=== PATIENT | female | born 1945 | race Two or more races ===

== ENCOUNTER → 2024-08-05 | Outpatient (CLI) | payer OTHER, MEDICAID, SELFPAY ==
[2024-08-05 10:17] LABS: Basophils # (Auto) 0.1 Thou/mm3 (0.0-0.2); Basophils % (Auto) 1 % (0-2.5); Eosinophils # (Auto) 0.1 Thou/mm3 (0.0-0.5); Eosinophils % (Auto) 2 % (0-10); Hematocrit 34.2 % (36.0-46.0); Hemoglobin 10.9 g/dL (12.0-16.0); Immature Granulocytes % (Auto) 0 % (0-0); Immature Granulocytes Auto 0.03 Thou/mm3 (0.00-0.00); Lymphocytes # (Auto) 3.3 Thou/mm3 (1.0-4.8); Lymphocytes % (Auto) 40 % (10-50); Mean Corpuscular HGB Conc 31.9 g/dl (31.0-37.0); Mean Corpuscular Hemoglobin 28.7 pg (25.0-35.0); Mean Corpuscular Volume 90 fL (80-100); Monocytes # (Auto) 0.5 Thou/mm3 (0.0-0.8); Monocytes % (Auto) 6 % (0-12); Neutrophils # (Auto) 4.2 Thou/mm3 (1.8-7.7); Neutrophils % (Auto) 51 % (37-80); Nucleated Red Blood Cell % 0 /100 WBC (0); Platelet Count 280 Thou/mm3 (140-440); RDW Standard Deviation 47.1 fL (36.4-46.3); White Blood Count 8.3 Thou/mm3 (3.6-11.0)
[2024-08-05 10:29] LABS: Glucose Estimated Average 154 mg/dL (80-131)
[2024-08-05 11:09] LABS: Alanine Aminotransferase 14 U/L (10-49); Albumin, Serum 4.4 gm/dL (3.4-4.8); Albumin/Globulin Ratio 2.3 (1.2-2.2); Alkaline Phosphatase 86 U/L (46-116); Anion Gap 7 (7-16); Aspartate Amino Transferase < 10 U/L (0-34); BUN/Creatinine Ratio 29 Ratio (12-20); Bilirubin,Total 0.5 mg/dL (0.3-1.2); Blood Urea Nitrogen 58 mg/dL (9-23); Calcium 8.9 mg/dL (8.3-10.6); Calcium (Corrected) 8.9 mg/dL (8.5-10.1); Carbon Dioxide 29.6 mMol/L (20.0-31.0); Cardiac Risk Estimate 3.1 RATIO (3.7-5.6); Chloride 103 mMol/L (98-107); Cholesterol 139 mg/dL (132-200); Globulin 1.9 gm/dL (2.3-3.5); Glucose 118 mg/dL (74-106); HDL Cholesterol 45 mg/dL (40-60); LDL Cholesterol,Calculated 68 mg/dL (0-130); Osmolality,Calculated 296 (275-295); Sodium 140 mMol/L (136-145); Total Protein 6.3 gm/dL (5.7-8.2); Triglycerides 130 mg/dL (30-150); eGFR 25 See Note
== END | disposition home or self-care (01) ==
PROVIDERS: PCP Nurse Practitioner Family; Referring Provider Nurse Practitioner Family; Visit Provider Nurse Practitioner Family
DX: E11.65 Type 2 diabetes mellitus with hyperglycemia (principal)
CPT/HCPCS: 36415; 80053; 80061; 83036; 85025

== ENCOUNTER → 2024-09-23 | Outpatient (CLI) | payer MEDICARE, MEDICAID, SELFPAY ==
[2024-09-23 10:37] LABS: Basophils # (Auto) 0.1 Thou/mm3 (0.0-0.2); Basophils % (Auto) 1 % (0-2.5); Eosinophils # (Auto) 0.2 Thou/mm3 (0.0-0.5); Eosinophils % (Auto) 2 % (0-10); Hematocrit 34.2 % (36.0-46.0); Hemoglobin 10.3 g/dL (12.0-16.0); Immature Granulocytes % (Auto) 0 % (0-0); Immature Granulocytes Auto 0.02 Thou/mm3 (0.00-0.00); Lymphocytes # (Auto) 2.3 Thou/mm3 (1.0-4.8); Lymphocytes % (Auto) 33 % (10-50); Mean Corpuscular HGB Conc 30.1 g/dl (31.0-37.0); Mean Corpuscular Hemoglobin 28.5 pg (25.0-35.0); Mean Corpuscular Volume 95 fL (80-100); Monocytes # (Auto) 0.4 Thou/mm3 (0.0-0.8); Monocytes % (Auto) 6 % (0-12); Neutrophils % (Auto) 58 % (37-80); Nucleated Red Blood Cell % 0 /100 WBC (0); Platelet Count 269 Thou/mm3 (140-440); Red Blood Count 3.61 Miln/mm3 (4.00-5.20); White Blood Count 6.9 Thou/mm3 (3.6-11.0)
[2024-09-23 10:48] LABS: Glucose Estimated Average 157 mg/dL (80-131); Hemoglobin A1C 7.1 % Hgb (4.8-6.0)
[2024-09-23 11:06] LABS: Alanine Aminotransferase 9 U/L (10-49); Albumin, Serum 4.2 gm/dL (3.4-4.8); Albumin/Globulin Ratio 1.6 (1.2-2.2); Alkaline Phosphatase 84 U/L (46-116); Anion Gap 10 (7-16); Aspartate Amino Transferase < 8 U/L (0-34); BUN/Creatinine Ratio 29 Ratio (12-20); Bilirubin,Total 0.6 mg/dL (0.3-1.2); Blood Urea Nitrogen 67 mg/dL (9-23); Calcium 8.8 mg/dL (8.3-10.6); Calcium (Corrected) 8.8 mg/dL (8.5-10.1); Carbon Dioxide 31.1 mMol/L (20.0-31.0); Cardiac Risk Estimate 3.1 RATIO (3.7-5.6); Chloride 104 mMol/L (98-107); Cholesterol 151 mg/dL (132-200); Creatinine (Component) 2.3 mg/dL (0.6-1.3); Globulin 2.6 gm/dL (2.3-3.5); Glucose 85 mg/dL (74-106); HDL Cholesterol 48 mg/dL (40-60); LDL Cholesterol,Calculated 83 mg/dL (0-130); Osmolality,Calculated 307 (275-295); Potassium 4.2 mMol/L (3.4-5.1); Sodium 145 mMol/L (136-145); Total Protein 6.8 gm/dL (5.7-8.2); Triglycerides 101 mg/dL (30-150); eGFR 21 See Note
[2024-09-23 11:11] LABS: Vitamin D 25 Hydroxy Total 38.6 ng/mL (7.3-40.2)
== END | disposition home or self-care (01) ==
PROVIDERS: PCP Internal Medicine; Referring Provider Internal Medicine; Visit Provider Internal Medicine
DX: I12.9 Hypertensive chronic kidney disease with stage 1 through stage 4 chronic kidney disease, or unspecified chronic kidney disease (principal); E11.22 Type 2 diabetes mellitus with diabetic chronic kidney disease; N18.4 Chronic kidney disease, stage 4 (severe); E78.5 Hyperlipidemia, unspecified
CPT/HCPCS: 36415; 80053; 80061; 81001; 82043; 82306; 82570; 83036; 83970; 84443; 85025

== ENCOUNTER → 2024-09-24 | Outpatient (CLI) | payer MEDICARE, MEDICAID, SELFPAY ==
[2024-09-24 14:17] LABS: Collection Type, Urine Clean Catch
[2024-09-24 16:09] LABS: Bilirubin,Urine Negative (Negative); Blood,Urine Negative (Negative); Clarity,Urine Clear (Clear/Hazy); Color,Urine Lt-Yellow (Lt Yel-Yel); Glucose, Urine 3+ (Negative); Ketones,Urine Negative (Negative); Leukocyte Esterase,Urine Positive (Negative); Nitrite,Urine Negative (Negative); PH,Urine 6.5 (5.0-7.0); Protein,Urine Negative (Neg - Trace); RBC,Urine 2 /hpf (0-3); Specific Gravity,Urine 1.014 (1.001-1.035); Squamous Epithelial Cell,Urine 1 /hpf (0-5); Urobilinogen,Urine Negative mg/dL (0.0-1.0); WBC,Urine 38 /hpf (0-5)
[2024-09-24 16:32] LABS: Creatinine MALB Rnd Ur 61 mg/dL (30-125); Microalbumin, Random Urine < 3 mg/L (0-300)
== END | disposition home or self-care (01) ==
PROVIDERS: PCP Internal Medicine; Referring Provider Internal Medicine; Visit Provider Internal Medicine
DX: I12.9 Hypertensive chronic kidney disease with stage 1 through stage 4 chronic kidney disease, or unspecified chronic kidney disease (principal); E11.22 Type 2 diabetes mellitus with diabetic chronic kidney disease; N18.4 Chronic kidney disease, stage 4 (severe); E78.5 Hyperlipidemia, unspecified
CPT/HCPCS: 81001; 82043; 82570

== ENCOUNTER → 2024-10-04 | Outpatient (CLI) | payer MEDICARE, MEDICAID, SELFPAY ==
--- NOTE | 2024-10-04 13:33 | XR_ITS ---
EXAMINATION: Ankle, left 3 views . Technique: Ankle AP, oblique, lateral 3 views Date and time of exam: October 04, 2024 1418 hours INDICATIONS: Patient fell last week with injury to the ankle, ankle pain. FINDINGS: Severe osteopenia No acute fracture No ankle dislocation IMPRESSION: No acute fracture
== END | disposition home or self-care (01) ==
LOC: CDIM 13:05
PROVIDERS: PCP Internal Medicine; Referring Provider Psychiatry & Neurology Neurology; Visit Provider Psychiatry & Neurology Neurology
DX: S99.912A Unspecified injury of left ankle, initial encounter (principal); W19.XXXA Unspecified fall, initial encounter
CPT/HCPCS: 73610

== ENCOUNTER → 2024-10-13 | Outpatient (CLI) | payer MEDICARE, MEDICAID, SELFPAY ==
--- NOTE | 2024-10-13 08:00 | XR_ITS ---
Examination: CT brain head without contrast. 2-D sagittal coronal reconstructions Date and time of exam:October 13, 2024 0841 hours INDICATIONS: Patient fell October 01, 2024 with injury to the head, head pain CTDI: vol (mGy):49.2 DLP: (mGycm):927 Technique: Multiple CT axial sections of the brain have been obtained, 5 mm slice thickness. Contrast has not been administered. 2-D sagittal, coronal reconstructions have been obtained Low dose protocols were performed. One or more of the following dose reduction techniques were used; automated exposure control, adjustment of the mA and/or KV according to patient size, use of iterative reconstruction technique. Findings: No significant ventricular enlargement. 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 No mass effect or midline shift Basal cisterns are not remarkable. Fourth ventricle is midline. Cranial vault intact. Impression: Negative for acute hemorrhage, mass effect or midline shift Clinical correlation advised and follow-up accordingly
== END | disposition home or self-care (01) ==
LOC: CCTX 08:22
PROVIDERS: Referring Provider Psychiatry & Neurology Neurology; Visit Provider Psychiatry & Neurology Neurology
DX: S09.90XA Unspecified injury of head, initial encounter (principal); W19.XXXA Unspecified fall, initial encounter
CPT/HCPCS: 70450

== ENCOUNTER → 2024-11-10 | Outpatient (CLI) | payer MEDICARE, MEDICAID, SELFPAY ==
[2024-11-10 09:53] LABS: Basophils % (Auto) 1 % (0-2.5); Eosinophils # (Auto) 0.2 Thou/mm3 (0.0-0.5); Eosinophils % (Auto) 3 % (0-10); Hematocrit 31.3 % (36.0-46.0); Hemoglobin 9.5 g/dL (12.0-16.0); Immature Granulocytes % (Auto) 0 % (0-0); Immature Granulocytes Auto 0.02 Thou/mm3 (0.00-0.00); Lymphocytes # (Auto) 2.6 Thou/mm3 (1.0-4.8); Lymphocytes % (Auto) 35 % (10-50); Mean Corpuscular HGB Conc 30.4 g/dl (31.0-37.0); Mean Corpuscular Hemoglobin 28.8 pg (25.0-35.0); Mean Corpuscular Volume 95 fL (80-100); Monocytes # (Auto) 0.5 Thou/mm3 (0.0-0.8); Monocytes % (Auto) 7 % (0-12); Neutrophils % (Auto) 54 % (37-80); Nucleated Red Blood Cell % 0 /100 WBC (0); Platelet Count 267 Thou/mm3 (140-440); RDW Standard Deviation 53.4 fL (36.4-46.3); White Blood Count 7.4 Thou/mm3 (3.6-11.0)
[2024-11-10 10:02] LABS: Glucose Estimated Average 148 mg/dL (80-131); Hemoglobin A1C 6.8 % Hgb (4.8-6.0)
[2024-11-10 10:24] LABS: Alanine Aminotransferase 14 U/L (10-49); Albumin, Serum 4.1 gm/dL (3.4-4.8); Albumin/Globulin Ratio 2.1 (1.2-2.2); Alkaline Phosphatase 91 U/L (46-116); Anion Gap 9 (7-16); Aspartate Amino Transferase 10 U/L (0-34); BUN/Creatinine Ratio 27 Ratio (12-20); Bilirubin,Total 0.8 mg/dL (0.3-1.2); Blood Urea Nitrogen 59 mg/dL (9-23); Calcium 8.3 mg/dL (8.3-10.6); Calcium (Corrected) 8.3 mg/dL (8.5-10.1); Carbon Dioxide 31.1 mMol/L (20.0-31.0); Cardiac Risk Estimate 2.9 RATIO (3.7-5.6); Chloride 106 mMol/L (98-107); Cholesterol 142 mg/dL (132-200); Creatinine (Component) 2.2 mg/dL (0.6-1.3); Glucose 86 mg/dL (74-106); HDL Cholesterol 49 mg/dL (40-60); LDL Cholesterol,Calculated 75 mg/dL (0-130); Osmolality,Calculated 306 (275-295); Potassium 4.7 mMol/L (3.4-5.1); Sodium 146 mMol/L (136-145); Total Protein 6.1 gm/dL (5.7-8.2); Triglycerides 90 mg/dL (30-150); eGFR 22 See Note
== END | disposition home or self-care (01) ==
LOC: COPL 08:51
PROVIDERS: PCP Internal Medicine; Referring Provider Nurse Practitioner Family; Visit Provider Nurse Practitioner Family
DX: E11.65 Type 2 diabetes mellitus with hyperglycemia (principal)
CPT/HCPCS: 36415; 80053; 80061; 83036; 85025

== ENCOUNTER → 2024-12-07 | Outpatient (CLI) | payer MEDICARE, MEDICAID, SELFPAY ==
--- NOTE | 2024-12-07 15:12 | XR_ITS ---
Examination: Fingers, left hand 3 views Technique: AP, oblique, lateral views left hand 3 views. Exam date and time: December 07, 2024 at 1526 hours INDICATIONS: Left third digit pain and swelling 3 days FINDINGS: Severe osteopenia Soft tissue swelling about the third digit No nori cortical bone destruction No fracture Soft tissue vascular calcification IMPRESSION: No nori cortical bone destruction
== END | disposition home or self-care (01) ==
PROVIDERS: PCP Internal Medicine; Referring Provider Internal Medicine; Visit Provider Internal Medicine
DX: M79.645 Pain in left finger(s) (principal)
CPT/HCPCS: 73140

== ENCOUNTER 2024-12-20 19:14 | Inpatient (IN) | payer OTHER, MEDICAID, MEDICARE, SELFPAY ==
[2024-12-20 19:43] VITALS: BP 174/89; PULSE 90; RESP 20; TEMP 37; O2SAT 95
--- NOTE | 2024-12-20 19:53 | PD.EDHAND ---
Upper Extremity Injury RME/HPI General Chief Complaint: Hand/Wrist Problems Stated Complaint: LEFT HAND FINGER SWELLING Time Seen by Provider: 12/20/24 19:53 Source: patient and family Arrival date/time: 12/20/24 19:14 Mode of arrival: wheelchair Limitations: no limitations RME / HPI complaint: injury to: left and finger (Middle) Onset (ago): week(s) (2 weeks) Other Extremity Injury: Left: fingers (Middle) Other injuries: none Relieving factors: none Exacerbating factors: movement of extremity Related Data Home Medications ?Medication ?Instructions ?Recorded ?Confirmed glipizide 10 mg tablet 10 mg PO BID 11/30/21 12/24/21 hydralazine 50 mg tablet 50 mg PO TID 11/30/21 12/24/21 atorvastatin 20 mg tablet 20 mg PO HS 12/24/21 12/24/21 benazepril 10 1 tab PO QDAY 12/24/21 12/24/21 mg-hydrochlorothiazide 12.5 mg tablet bumetanide 1 mg tablet 1 mg PO QDAY 12/24/21 12/24/21 insulin degludec 200 unit/mL (3 38 unit subcut QAM 12/24/21 12/24/21 mL) subcutaneous pen (Tresiba FlexTouch U-200 insulin) Previous Rx's ?Medication ?Instructions ?Recorded diltiazem HCl 60 mg tablet 60 mg PO TID #0 tabs 12/01/21 meloxicam 7.5 mg tablet 7.5 mg PO QDAY #10 tabs 08/10/23 diclofenac sodium 1 % topical gel 2 g topical QID PRN pain #100 grams 02/29/24 (Arthritis Pain (diclofenac)) lidocaine 4 % topical patch 1 patch topical Q24H PRN pain #30 02/29/24 (AsperFlex (lidocaine)) ea Allergies Allergy/AdvReac Type Severity Reaction Status Date / Time No Known Allergies Allergy Verified 12/20/24 19:15 Review of Systems Review of Systems Systems Reviewed: All systems reviewed, normal except as documented Musculoskeletal Musculoskeletal: Reports system reviewed and no additional complaints, except as documented, Reports as per HPI, Reports arthralgias, Reports joint swelling (Left digit number 1) and Reports limited range of motion Integumentary/Breasts Skin/Breast: Reports system reviewed and no additional complaints, except as documented and Reports erythema Neurologic Neurologic: Reports system reviewed and no additional complaints, except as documented ED Exam General Limitations: Present no limitations Head Head exam: Present atraumatic and normocephalic Eye Eye exam: Present normal appearance and EOMI ENT ENT exam: Present normal exam, normal oropharynx and mucous membranes moist Neck Neck exam: Present normal inspection and full ROM Chest Chest inspection: Present normal inspection Respiratory Respiratory exam: Present normal lung sounds bilaterally Cardiovascular Cardiovascular exam: Present regular rate and normal rhythm Abdominal Exam Abdominal exam: Present soft Extremities Exam Extremities exam: Present tenderness (Left digit number 1 is tender to palpation, it is edematous, patient is not able to make a closed fist. There is no apparent open lesions present. There is no clubbing dorsiflexion.) Back Exam Back exam: Present normal inspection and full ROM Neurological Exam Neurological exam: Present alert and oriented X3 Psychiatric Psychiatric exam: Present normal affect and normal mood Skin Skin exam: Present warm, dry, intact and erythema (Mildly erythematous is the left middle finger of the left hand) Course Course Course Narrative: Patient will have an x-ray of the left hand, CBC, CMP. Quality Measures none Orders Category Date Time Status COVID-19 Screening Questionnaire NOW Care 12/20/24 22:48 Active Decision to Admit X1 Care 12/20/24 22:48 Active XR hand comp LT min 3V Stat Exams 12/20/24 20:03 Completed Blood Culture (Lab) Stat Lab 12/20/24 22:34 Ordered CBC Stat Lab 12/20/24 20:17 Results CMP [Comprehensive Metabolic Panel] Stat Lab 12/20/24 20:17 Completed CRP [C-Reactive Protein] Stat Lab 12/20/24 22:35 Ordered Procalcitonin Stat Lab 12/20/24 22:35 Ordered Sed Rate (ESR) Stat Lab 12/20/24 20:17 Results Vital Signs Vital signs: Vital Signs Temperature 98.6 F 12/20/24 19:43 Pulse Rate 90 12/20/24 19:43 Respiratory Rate 20 12/20/24 19:43 Blood Pressure 174/89 H 12/20/24 19:43 Pulse Oximetry (%) 95 12/20/24 19:43 Oxygen Delivery Method Room Air 12/20/24 19:43 Pulse ox room air is 95% Extremity Injury MDM Narrative MDM Narrative:: Patient will be admitted to Dr. South' service. Patient data External records reviewed:: Other (specify) Clinical information provided by:: family Social determinants that could affect healthcare access:: none Patient has the following chronic illnesses:: Proteinuria, lipidemia, hypertension, diabetes, transient cerebral ischemia, carotid artery stenosis, cerebral artery PEs, toe gangrene, gangrene of foot, infestations by maggots, osteomyelitis, hyperglycemia, abnormal CT of the brain, cellulitis of right lower extremity without fluid, cholelithiasis, confusion, diabetes mellitus due to underlying condition, dizziness, hand laceration, left thumb sprain, otitis media, peripheral neuropathy, Evaluation data The following diagnostics were reviewed and interpreted by me:: radiology exam(s) Lab and/or radiology exams considered but not ordered:: Lab results have been reviewed by me as well as X-Ray results. Interpretation Summary: Early osteomyelitis distal aspect proximal phalanx third digit. Medications / Prescriptions Medications or Prescriptions considered but not ordered:: TBD Medication administrations:: TBD Consultations Consultation(s) initiated? (list below): Yes Consultation #1 (Physician, Specialty, Details): I spoke with Dr. Dr. Newman with regards to patient Matthew. He will admit and treat. Discharge Plan Plan Patient Disposition: Admit Acute Care w/in Hospital Patient condition on transfer: Stable Prescriptions/Referrals Prescriptions/Med Rec: No Action bumetanide 1 mg Tablet 1 mg PO QDAY benazepril-hydrochlorothiazide 10-12.5 mg Tablet 1 tab PO QDAY Tresiba FlexTouch U-200 200 unit/mL (3 mL) Insulin Pen 38 unit SUBCUT QAM atorvastatin 20 mg tablet 20 mg PO HS glipizide 10 mg Tablet 10 mg PO BID hydralazine 50 mg Tablet 50 mg PO TID diltiazem HCl 60 mg Tablet 60 mg PO TID Qty: 0 0RF meloxicam 7.5 mg tablet 7.5 mg PO QDAY Qty: 10 0RF diclofenac sodium [Arthritis Pain (diclofenac)] 1 % gel 2 g topical QID PRN (Reason: pain) Qty: 100 0RF Rx Instructions: apply to single elbow, wrist or hand; for hand includes palm/fingers/back of hand lidocaine [AsperFlex (lidocaine)] 4 % adhesive patch,medicated 1 patch topical Q24H PRN (Reason: pain) Qty: 30 0RF Rx Instructions: may leave on for up to 12 hrs Referrals: No Primary/Family,Physician [Primary Care Provider] - In 1 week Problem List Clinical Impression: Osteomyelitis Patient/Caregiver Discharge Instructions Print Language: Indian PA/NETWORK PROGRAM MANAGER Supervising Physician PA/NETWORK PROGRAM MANAGER Supervising Physician: KHUSHBU
--- NOTE | 2024-12-20 20:03 | XR_ITS ---
Examination: Hand, left 3 views Technique: Hand AP, oblique, lateral 3 views Date and time of exam: December 20, 20242025 hours INDICATIONS: Hand swelling and pain radiating to weeks ago IMPRESSION: Prominent soft tissue swelling dorsum of the hand and surrounding the third digit Severe osteopenia Soft tissue vascular calcification No acute fracture Early cortical erosions distal aspect proximal phalanx third digit IMPRESSION: Early osteomyelitis distal aspect proximal phalanx third digit Recommend MRI hand without contrast follow-up
[2024-12-20 20:38] LABS: Basophils # (Auto) 0.1 Thou/mm3 (0.0-0.2); Basophils % (Auto) 1 % (0-2.5); Eosinophils # (Auto) 0.2 Thou/mm3 (0.0-0.5); Eosinophils % (Auto) 2 % (0-10); Hematocrit 31.1 % (36.0-46.0); Hemoglobin 9.8 g/dL (12.0-16.0); Immature Granulocytes % (Auto) 0 % (0-0); Immature Granulocytes Auto 0.02 Thou/mm3 (0.00-0.00); Lymphocytes % (Auto) 28 % (10-50); Mean Corpuscular HGB Conc 31.5 g/dl (31.0-37.0); Mean Corpuscular Hemoglobin 29.7 pg (25.0-35.0); Mean Corpuscular Volume 94 fL (80-100); Monocytes # (Auto) 0.4 Thou/mm3 (0.0-0.8); Monocytes % (Auto) 6 % (0-12); Neutrophils # (Auto) 4.6 Thou/mm3 (1.8-7.7); Neutrophils % (Auto) 63 % (37-80); Nucleated Red Blood Cell % 0 /100 WBC (0); Platelet Count 264 Thou/mm3 (140-440); RDW Standard Deviation 50.2 fL (36.4-46.3); White Blood Count 7.3 Thou/mm3 (3.6-11.0)
[2024-12-20 20:52] LABS: Alanine Aminotransferase 8 U/L (10-49); Albumin, Serum 4.4 gm/dL (3.4-4.8); Albumin/Globulin Ratio 1.8 (1.2-2.2); Alkaline Phosphatase 91 U/L (46-116); Anion Gap 8 (7-16); Aspartate Amino Transferase 11 U/L (0-34); BUN/Creatinine Ratio 27 Ratio (12-20); Bilirubin,Total 0.5 mg/dL (0.3-1.2); Blood Urea Nitrogen 74 mg/dL (9-23); Calcium 8.2 mg/dL (8.3-10.6); Calcium (Corrected) 8.2 mg/dL (8.5-10.1); Carbon Dioxide 29.7 mMol/L (20.0-31.0); Chloride 100 mMol/L (98-107); Creatinine (Component) 2.7 mg/dL (0.6-1.3); Globulin 2.4 gm/dL (2.3-3.5); Glucose 211 mg/dL (74-106); Osmolality,Calculated 303 (275-295); Potassium 4.5 mMol/L (3.4-5.1); Sodium 138 mMol/L (136-145); Total Protein 6.8 gm/dL (5.7-8.2); eGFR 17 See Note
[2024-12-20 22:54] LABS: Sed Rate (ESR) 34 mm/hr (0-30)
[2024-12-20 23:13] LABS: C-Reactive Protein < 0.5 mg/dL (0.0-0.9)
[2024-12-20 23:16] LABS: Procalcitonin 0.09 ng/ml (0.0-0.49)
--- NOTE | 2024-12-20 23:26 | PD.RESHP ---
Documentation for date of: 12/20/24 [facility] History of Present Illness History of present illness: The patient is an 79-year-old female with significant past medical history of hypertension, diabetes mellitus type 2, peripheral vascular disease, hyperlipidemia, carotid ASO, neuropathy, chronic bilateral lower limb edema, history of right foot complete toe amputations, presented to ED with chief complaint of left hand and middle finger swelling associated with severe pain for past 4 to 5 days. She reported that she has been having frequent falls, but not losing any consciousness or hitting her head on ground. However, the swelling was before her last fall that was 3 days ago. The patient is a poor historian, and history was obtained by interviewing the patient, and chart review. She denied any injury to the left hand, insect bite, headache, nausea or vomiting, chest pain, SOB, any changes in bowel or bladder habit, fever or chills. In the ED her vitals were BP 174/89 with other vitals WNL. Labs Hb 9.8, ESR 34, BUN 74, Cr 2.7, GFR 17, BS 211, Corrected Ca 8.2, and X ray Lt hand revealed Prominent soft tissue swelling dorsum of the hand and surrounding the third digit, severe osteopenia, soft tissue vascular calcification, no acute fracture but early cortical erosions distal aspect proximal phalanx third digit. PMH: As mentioned above SHx: As mentioned above Social Hx: Denies alcohol, smoking or any illicit drug use Meds: To be reconcilled Allergy: NKA The patient was given IV ceftriaxone and vancomycin and admitted to med tele unit for further management of possible lt third digit osteomyelitis. Review of Systems Review of Systems Systems Reviewed: All systems reviewed, normal except as documented Exam Vital Signs Temp Pulse Resp BP Pulse Ox O2 Del Method 98.6 F 90 20 174/89 H 95 Room Air 12/20/24 19:43 12/20/24 19:43 12/20/24 19:43 12/20/24 19:43 12/20/24 19:43 12/20/24 19:43 Narrative Exam General: Elderly female, no acute distress, Alert and Oriented x 3 HEENT: Moist mucous membranes, oropharynx clear Neck: Supple, No masses, No JVD CVS: S1S2 Regular rate and rhythm, No murmurs, rubs or gallops Lungs: Clear to auscultation with no accessory use, no wheeze no rhonchi Abd: Soft, NT/ND, +BS, no organomegaly Ext: 1-2+ BL LL edema, Rt foot with amputated toes, feeble pulses Skin: No rash Psych: Appropriate mood and affect Results: Labs 12/20/24 20:17 12/20/24 20:17 Labs: Short CBC 12/20/24 Range/Units 20:17 WBC 7.3 (3.6-11.0) Thou/mm3 Hgb 9.8 L (12.0-16.0) g/dL Hct 31.1 L (36.0-46.0) % Plt Count 264 (140-440) Thou/mm3 BMP 12/20/24 20:17 Sodium 138 Potassium 4.5 Chloride 100 Carbon Dioxide 29.7 BUN 74 H Creatinine 2.7 H Glucose 211 H Calcium 8.2 L Liver Function 12/20/24 Range/Units 20:17 Total Bilirubin 0.5 (0.3-1.2) mg/dL AST 11 (0-34) U/L ALT 8 L (10-49) U/L Alkaline Phosphatase 91 (46-116) U/L Albumin 4.4 (3.4-4.8) gm/dL Quality Measures Quality Measures none Advance care planning discussed with:: patient Medications Home Medications and Allergies Home Medications ?Medication ?Instructions ?Recorded ?Confirmed ?Type glipizide 10 mg tablet 10 mg PO BID 11/30/21 12/24/21 History hydralazine 50 mg tablet 50 mg PO TID 11/30/21 12/24/21 History atorvastatin 20 mg tablet 20 mg PO HS 12/24/21 12/24/21 History benazepril 10 1 tab PO QDAY 12/24/21 12/24/21 History mg-hydrochlorothiazide 12.5 mg tablet bumetanide 1 mg tablet 1 mg PO QDAY 12/24/21 12/24/21 History insulin degludec 200 unit/mL (3 38 unit subcut QAM 12/24/21 12/24/21 History mL) subcutaneous pen (Tresiba FlexTouch U-200 insulin) Allergies Allergy/AdvReac Type Severity Reaction Status Date / Time No Known Allergies Allergy Verified 12/20/24 19:15 Visit Medications Ceftriaxone Sodium 2 gm/ (Sodium Chloride) 50 mls @ 100 mls/hr IV HS [facility] Stop: 12/27/24 22:54 Ceftriaxone Sodium 2 gm/ (Sodium Chloride) 50 mls @ 100 mls/hr IV X1 ONE Stop: 12/20/24 23:29 Vancomycin/Sodium Chloride (Vancomycin/Ns 1 Gm Ivpb) 200 mls @ 120 mls/hr IV Q100M ONE Stop: 12/21/24 00:39 Pharmacy Consult (Vancomycin Pharmacy To Dose 1 Each Each) 1 each IV QDAY JANAE Stop: 01/19/25 22:54 Assessment & Plan Plan The patient is an 79-year-old female with significant past medical history of hypertension, diabetes mellitus type 2, peripheral vascular disease, hyperlipidemia, carotid ASO, neuropathy, chronic bilateral lower limb edema, history of right foot complete toe amputations, presented to ED with chief complaint of left hand and middle finger swelling associated with severe pain for past 4 to 5 days. X ray Lt hand revealed Prominent soft tissue swelling dorsum of the hand and surrounding the third digit, severe osteopenia, soft tissue vascular calcification, no acute fracture but early cortical erosions distal aspect proximal phalanx third digit. The patient was given IV ceftriaxone and vancomycin and admitted to med tele unit for further management of possible lt third digit osteomyelitis. #Lt wrist and 3rd fingure swelling 2/2 #Possible lt 3rd digit osteomyelitis Presented to ED with chief complaint of left hand and middle finger swelling associated with severe pain for past 4 to 5 days. She reported that she has been having frequent falls, but not losing any consciousness or hitting her head on ground. Has significant history of uncontrolled DM2. ESR 34 X ray Lt hand revealed Prominent soft tissue swelling dorsum of the hand and surrounding the third digit, severe osteopenia, soft tissue vascular calcification, no acute fracture but early cortical erosions distal aspect proximal phalanx third digit. -Started on Vancomycin and Ceftriaxone IV -ID Dr. Calzada consutled, appreciate recs -Daily am labs for CBC, CMP and electrolytes -May consider surgical consultation or further imaging as needed #CHANELL on CKD stage IV Likely prerenal in the setting of volume overload as she has BL LL 1-2+ edema, less likely volume depletion Baseline Cr 2.2 presented with Cr 2.5, baselike GFR in 20's, BUN/ Cr 27 suggestive of prerenal etiology -Daily bumex 1mg IV -Avoid nephrotoxic drugs -Renally dose medications -Daily am labs for CMP and electrolytes -Supervisor Lump Room Dr. Benavides consulted, appreciate reccs. #Uncontrolled DM2 Patient is taking multiple medicines for DM2, but her BS is sometimes high -Started on Glargine 9 units at night and SSI, but patient refused it last night -Ordered A1c #Afib Patient takes Cadiazem 60mg BID and Eliquis 5mg BID at home -Started on Cardiazem ER 60mg BID from 9am -Hold eliquis for now due to concern of possible surgical intervention in the morning. -Now the patient meets 2/3 criteria of 2.5mg BID dosing with age 79 years and Cr greater than 1.5, so if resuming eliquis, consider 2.5mg BID dosing. -Daily am monitoring for electrolytes and maintain K >4 and Mg >2. #Hypocalcemia Likely 2/2 Vit D3 deficiency 2/2 CKD IV Presented with corrected Ca of 8.2 -Started on CaCO3 600mg daily -Ordered Vit D3 level #Normocytic anemia Hb 9.8, MCV 94 [place] multifactorial 2/2 inflammatory anemia and nutritional deficiency -Ordered Iron Panel, ferritin, vit B12, Folate level, retic count #Hyperlipidemia #PAD #HTN -Started on atorvastatin 40mg HS -Resumed carvedilol 60mg BID -Holding benazapril-HCTZ in the setting of CHANELL -Holding aspiring in the setting of possible surgical intervention -Lipid panel ordered #Peripheral neuropathy Likely 2/2 uncontrolled DM2 -Resumed home lyrica 25mg daily at night Health Maintenance: Dispo: admitted to med tele unit for further management of possible lt third digit osteomyelitis. DVT prophylaxix: Currently holding home eliquis due to concern for possible surgical intervention Diet: NPO for now Code: Full code The patient's management plan was discussed with my attending physician MD Mikey Cochran MD, PGY2 Attending Provider Attestation/Addendum I attest that I was physically present for the evaluation, physical examination, lab and imaging review of the patient with the residents. I discussed the case with the residents and agree with the findings and plans of care as documented above. 79 years old female with past medical history of hypertension, diabetes mellitus, peripheral vascular disease, hyperlipidemia, neuropathy, chronic bilateral lower limb edema, history of right foot toe amputation who presented to the ED with complaint of swelling and pain on left hand and middle finger for past few days. Patient denied any injury or trauma to the hand. She also denied any fever, chills. In the ED, her blood pressure was 174/89, hemoglobin 9.8, ESR 34, BUN/creatinine 74/2.7, blood glucose 211. X-ray of the left hand shows prominent soft tissue swelling on the dorsum of the hand and surrounding of the third digit, osteopenia and osteomyelitis of distal third digit. We will admit the patient for management of third digit osteomyelitis, left hand cellulitis. We will start her on IV Rocephin and vancomycin. We will obtain ID consult and culture results. We will continue with Bumex for her CHANELL on CKD and obtain neurology consult. We will obtain iron panel, ferritin B12 folate for evaluation of anemia. Will continue Cardizem for A-fib. Continue home medication for hyperlipidemia, peripheral neuropathy. Lora South MD
[2024-12-20 23:45] VITALS: BP 135/67; PULSE 63; RESP 18; TEMP 36.9; O2SAT 94
[2024-12-20] MEDS: cefTRIAXone 2 GM in SODIUM CHLORIDE 0.9% (Popper) 50 ML IV (23:48)
[2024-12-21] VITALS (12 sets, daily range): BP systolic 119–172; BP diastolic 65–92; PULSE 59–84; RESP 16–24; TEMP 36.4–37.2; O2SAT 94–99; BMI 39.6
[2024-12-21] MEDS: VANCOMYCIN/NS 1 GM IVPB 200 ML IV (00:23)
[2024-12-21] MEDS: PREGABALIN 25 MG CAPSULE PO ×2 (00:47→20:17)
[2024-12-21] MEDS: DEXTROSE 50%-WATER INJ 50 ML SYRINGE 25 ML IV (06:17)
[2024-12-21 07:55] LABS: Basophils # (Auto) 0.1 Thou/mm3 (0.0-0.2); Basophils % (Auto) 1 % (0-2.5); Eosinophils # (Auto) 0.1 Thou/mm3 (0.0-0.5); Eosinophils % (Auto) 2 % (0-10); Hematocrit 28.2 % (36.0-46.0); Immature Granulocytes % (Auto) 0 % (0-0); Immature Granulocytes Auto 0.01 Thou/mm3 (0.00-0.00); Immature Reticulocyte Fraction 9.8 % (3.0-15.9); Lymphocytes # (Auto) 1.7 Thou/mm3 (1.0-4.8); Lymphocytes % (Auto) 23 % (10-50); Mean Corpuscular HGB Conc 30.9 g/dl (31.0-37.0); Mean Corpuscular Hemoglobin 29.4 pg (25.0-35.0); Mean Corpuscular Volume 95 fL (80-100); Monocytes # (Auto) 0.5 Thou/mm3 (0.0-0.8); Monocytes % (Auto) 7 % (0-12); Neutrophils # (Auto) 5.1 Thou/mm3 (1.8-7.7); Neutrophils % (Auto) 68 % (37-80); Nucleated Red Blood Cell % 0 /100 WBC (0); Platelet Count 217 Thou/mm3 (140-440); RDW Standard Deviation 51.8 fL (36.4-46.3); Red Blood Count 2.96 Miln/mm3 (4.00-5.20); Reticulocyte % (Auto) 1.6 % (0.5-1.5); Reticulocyte Hgb Content 31.6 pg (28.0-35.0); White Blood Count 7.5 Thou/mm3 (3.6-11.0)
[2024-12-21 08:12] LABS: Glucose Estimated Average 146 mg/dL (80-131); Hemoglobin A1C 6.7 % Hgb (4.8-6.0)
[2024-12-21] MEDS: DILTIAZEM 30 MG TABLET 60 MG PO ×2 (08:17→20:26)
[2024-12-21] MEDS: CALCIUM CARBONATE 600 MG TABLET PO (08:17)
[2024-12-21] MEDS: BUMETANIDE INJ 0.25 MG/ML VIAL 4 ML 1 MG IVP (08:17)
[2024-12-21 08:27] LABS: Alanine Aminotransferase 8 U/L (10-49); Albumin, Serum 3.8 gm/dL (3.4-4.8); Albumin/Globulin Ratio 1.7 (1.2-2.2); Alkaline Phosphatase 76 U/L (46-116); Anion Gap 7 (7-16); Aspartate Amino Transferase < 10 U/L (0-34); BUN/Creatinine Ratio 30 Ratio (12-20); Bilirubin,Total 0.5 mg/dL (0.3-1.2); Blood Urea Nitrogen 72 mg/dL (9-23); Calcium 8.1 mg/dL (8.3-10.6); Calcium (Corrected) 8.3 mg/dL (8.5-10.1); Carbon Dioxide 28.6 mMol/L (20.0-31.0); Chloride 103 mMol/L (98-107); Creatinine (Component) 2.4 mg/dL (0.6-1.3); Estimated Creatinine Clearance 18.9 mL/min (>60); Globulin 2.2 gm/dL (2.3-3.5); Glucose 95 mg/dL (74-106); Magnesium 3.7 mg/dL (1.6-2.6); Osmolality,Calculated 298 (275-295); Phosphorous 5.3 mg/dL (2.4-5.1); Potassium 4.4 mMol/L (3.4-5.1); Sodium 139 mMol/L (136-145); Thyroid Stimulating Hormone 1.47 uIU/mL (0.55-4.78); eGFR 20 See Note
[2024-12-21 08:34] LABS: Hemoglobin 8.7 g/dL (12.0-16.0)
[2024-12-21 08:35] LABS: Vitamin B12 537 pg/mL (211-911)
[2024-12-21 08:40] LABS: Cholesterol 107 mg/dL (132-200); HDL Cholesterol 36 mg/dL (40-60); LDL Cholesterol,Calculated 55 mg/dL (0-130); Triglycerides 82 mg/dL (30-150)
--- NOTE | 2024-12-21 09:22 | PD.NEPHCONS ---
History of Present Illness Data of Consult Consult date: 12/21/24 Requesting Physician: Lora South MD Primary Care Provider: Physician No Primary/Family Consult Narrative Reason for consult: CHANELL on CKD History of present illness: Mr. Carter is a 79-year-old lady with extensive past medical history of hypertension, diabetes type 2, peripheral vascular disease with right metatarsal amputation, dyslipidemia, carotid ASO, diabetic neuropathy, congestive cardiac failure, lower extremity edema-mostly wheelchair-bound, CKD stage IIIb under my care for many years presented to the emergency department with significant pain in the left hand especially in the middle finger going on for the last few days. She reported fall but no loss of consciousness. Pain was so bad that she presented herself to the ER. In the emergency department Hemoglobin was 9.8, sedimentation rate 34, BUN 74, creatinine 2.7 with a GFR of 17, blood sugar 211, calcium 8.2, x-ray showed osteopenia with early cortical erosions. Admitted to the hospitalist team. Renal consultation requested for CHANELL on CKD. Home medications included Lipitor, benazepril/hydrochlorothiazide, bumetanide, diltiazem, glipizide, hydralazine, insulin 429/2024 patient currently seen in medical floor. Blood pressure 172/84, heart rate 77. Hemoglobin 8.7. Creatinine 2.4 today, A1c 6.7, uric acid 9.6, calcium 8.3, phosphorus 5.3, magnesium 3.7, iron saturation 11, ferritin 31, LFTs normal, albumin 3.8, LDL 55, B12 537, TSH normal. cc:: cc: Lora South MD Review of Systems Review of Systems Narrative Review of Systems: CONSTITUTIONAL: Patient denies any fever, chills. HEENT: Denies any visual disturbances or hearing problems. CARDIOVASCULAR: Patient denies any chest pain, shortness of breath. Complaining of swelling in the lower extremities. PULMONARY: Patient denies any shortness of breath, cough. GASTROINTESTINAL: Patient denies any abdominal pain, constipation, nausea, vomiting, diarrhea. GENITOURINARY: Patient denies any urinary symptoms of burning or frequency or hematuria, denies any form in the urine. SKIN: Denies any rash. MUSCULOSKELETAL: Complaining of pain in the left hand especially in the third digit. Gait imbalance NEUROLOGICAL: Denies any neurological problems of strokes, seizures or confusion. Denies any memory problems. Complaining of neuropathy PSYCHIATRIC: Denies any depression or anxiety. LYMPHATICS : No lymphadenopathy Past Medical History Past Medical History NEUROLOGIC: Negative Neurological Disorders or Seizures CARDIAC: Positive Cardiac Disorders, Coronary Artery Disease, Peripheral Vascular Disease, Hypercholesterolemia and Hypertension; Negative Congestive Heart Failure RESPIRATORY: Positive Asthma; Negative Respiratory Disorders or Chronic Obstructive Pulmonary Disease (COPD) GASTROINTESTINAL: Negative Gastrointestinal Disorders or Hepatitis GENITOURINARY: Negative Genitourinary Disorders or Renal Disease REPRODUCTIVE: Positive Previous Pregnancies MUSCULOSKELETAL: Positive Musculoskeletal Disorders and Arthritis; Negative Carpal Tunnel Syndrome ENT: Positive Cataracts ENDOCRINE: Positive Endocrine Disorders and Diabetes Mellitus Type 2; Negative Diabetes Mellitus Type 1 or Hypothyroidism HEMATOLOGIC: Negative Blood Disorders, Anemia or Clotting Problems OTHER HISTORY: Negative Hospitalization, Autoimmune Disease, Down Syndrome, Developmental Delay, Shingles, Falls, Blood Transfusions, Anesthesia Reactions, Organ Transplant, Chemotherapy, Radiation Therapy, Hyperbaric Therapy, MRSA, VRSA, Vancomycin-Resistant Enterococci, Human Immunodeficiency Virus (HIV), Chicken Pox, Measles, Mumps, Rubella (Spanish Measles), Pertussis, Clostridium Difficile or Cancer Surgical History SURGICAL: Positive Tubal Ligation; Negative Abdominal Surgery, Nephrectomy, Joint Replacement, Amputation, Open Reduction Internal Fixation, Arthroscopy, Neurologic Surgery, Brain Shunt, Mastectomy, Lumpectomy, Hysterectomy or Organ Transplant Social History SMOKING STATUS: Never smoker Meds Home Medications and Allergies Home Medications ?Medication ?Instructions ?Recorded ?Confirmed ?Type glipizide 10 mg tablet 10 mg PO BID 11/30/21 12/24/21 History hydralazine 50 mg tablet 50 mg PO TID 11/30/21 12/24/21 History atorvastatin 20 mg tablet 20 mg PO HS 12/24/21 12/24/21 History benazepril 10 1 tab PO QDAY 12/24/21 12/24/21 History mg-hydrochlorothiazide 12.5 mg tablet bumetanide 1 mg tablet 1 mg PO QDAY 12/24/21 12/24/21 History insulin degludec 200 unit/mL (3 38 unit subcut QAM 12/24/21 12/24/21 History mL) subcutaneous pen (Tresiba FlexTouch U-200 insulin) Allergies Allergy/AdvReac Type Severity Reaction Status Date / Time No Known Allergies Allergy Verified 12/20/24 19:15 Exam Vital Signs Temp Pulse Resp BP Pulse Ox O2 Del Method 37.2 C 84 16 126/65 99 Room Air 12/21/24 07:27 12/21/24 08:17 12/21/24 07:27 12/21/24 08:17 12/21/24 07:27 12/21/24 04:00 Narrative Exam GENERAL APPEARANCE: Elderly lady-patient seems to be comfortable, adequately hydrated and nourished. HEENT: EOMI, PERRLA NECK: Neck supple, no JVD or bruit CARDIOVASCULAR: Heart regular,2/6 murmurs LUNGS/CHEST: Chest clear to auscultation. No rales, rhonchi, wheezing ABDOMEN: Soft, nontender, nondistended. No masses. Normal bowel sounds. EXTREMITIES: 2+ edema in the lower extremities SKIN: Skin exam normal without any rashes MUSCULOSKELETAL: Left hand is swollen especially the left third digit NEUROLOGICAL : No neurological deficits-able to move all extremities, awake and alert Results Labs 12/21/24 07:30 12/21/24 07:30 Labs: Short CBC 12/20/24 12/21/24 Range/Units 20:17 07:30 WBC 7.3 7.5 (3.6-11.0) Thou/mm3 Hgb 9.8 L 8.7 L (12.0-16.0) g/dL Hct 31.1 L 28.2 L (36.0-46.0) % Plt Count 264 217 D (140-440) Thou/mm3 BMP 12/20/24 12/21/24 20:17 07:30 Sodium 138 139 Potassium 4.5 4.4 Chloride 100 103 Carbon Dioxide 29.7 28.6 BUN 74 H 72 H Creatinine 2.7 H 2.4 H Glucose 211 H 95 D Calcium 8.2 L 8.1 L Liver Function 12/20/24 12/21/24 Range/Units 20:17 07:30 Total Bilirubin 0.5 0.5 (0.3-1.2) mg/dL AST 11 < 10 (0-34) U/L ALT 8 L 8 L (10-49) U/L Alkaline Phosphatase 91 76 (46-116) U/L Albumin 4.4 3.8 D (3.4-4.8) gm/dL Assessment & Plan Assessment and plan (1) Acute on chronic renal failure: Status: Acute Assessment and plan: Acute on chronic renal failure secondary to prerenal azotemia. Patient clinically looks rather hypervolemic with significant edema. Will need to rule out congestive heart failure. Rule out diabetic nephropathy with proteinuria. Check urine protein/creatinine and renal ultrasound. Strict I&O's ordered. Agree with diuretics. Check echocardiogram. (2) Hypertension: Status: Acute Assessment and plan: Continue home medications except benazepril/hydrochlorothiazide for now (3) Diabetes: Status: Acute Assessment and plan: Accu-Cheks, sliding scale, diabetic diet (4) Proteinuria: Status: Acute Assessment and plan: Check urine protein/creatinine. Rule out nephrotic syndrome (5) Hyperlipidemia: Status: Acute Assessment and plan: On statin (6) Cellulitis of left hand: Status: Acute Assessment and plan: Patient has significant inflammation/infection of the left third finger. MRI of the left hand ordered. Dr. Westbrook was consulted. Currently on antibiotics. Additional Assessment & Plan Additional Plan: Thank you Dr. Spencer for allowing me to participate in the care of Ms. Perea
[2024-12-21 12:13] LABS: Ferritin 31 ng/mL (7.3-270.7); Iron 27 mcg/dL (50-170); Percent Iron Saturation 11 % (20-55); Total Iron Binding Capacity 228 mcg/dL (250-425); Unsaturated Iron Binding 201 (225-295)
--- NOTE | 2024-12-21 14:03 | PD.RESPRO ---
Documentation for date of: 12/21/24 Patient is 79-year-old female, presents to the emergency room complaining of pyrexia, pain left hand and swelling as well as anemia likely secondary to GI bleed. Started on antibiotics for possible cellulitis, x-ray showed concern for osteomyelitis, ordered MRI hand. The patient is able to flex her fingers chcf, radial pulse positive, sensation is intact though tender to touch. Orthopedic surgeon Dr. Westbrook is consulted for hand cellulitis. Will continue patient on antibiotics, awaiting further recommendations from orthopedic surgeon. Patient evaluated and examined at the bedside, plan of care discussed with rest of the team including my attending physician, except as noted. Quresh PGY2 Subjective Subjective Interval history: Overnight admission for acute anemia, likely secondary to GI bleed. Subjective pyrexia at home with chills that promoted patient to the emergency room. Patient deneid trauma or insertion of metal object to left third digit. Patient stated this has never happened before in her upper extremities. Denied history of DVT. Previous lower extremity digit amputation. Continue antiboitics. Pending MRI of left hand with out contrast. Exam Vital Signs Temp Pulse Resp BP Pulse Ox O2 Del Method 97.6 F 59 L 17 131/68 H 95 Room Air 12/21/24 11:36 12/21/24 11:36 12/21/24 11:36 12/21/24 11:36 12/21/24 11:36 12/21/24 04:00 Narrative Exam General Appearance: Alert & Oriented X3, well-nourished female who is lying in bed in no acute distress. Edema noted on left 3rd digit with erythema, tender to touch, and no warm touch. HEENT: Skull symmetrical and atraumatic. Conjunctivae pin and moist. Pupils equal, round, reactive to light and accommodation (PERRL). External ear without lesion or discharge. Straight, nares patient, mucosa pink, no discharge. No thyroid nodule appreciated. No cervical lymphadenopathy. Cardio: Normal Rate and Rhythm with S1 and S2 heart sounds. No murmurs or extra heart sounds auscultated. No bruits on carotid auscultation. No peripheral edema or cyanosis. Lungs: Symmetric with good expansion. Chest and back non-tender. Breath sounds vesicular without crackles, wheezing or rhonchi Abdomen: Non-tender, Non-distended, Normal Reactive Bowel Sounds Neuro: Alert, cooperative, oriented to person, place, and time. Speech clear. CN grossly intact. Upper motor strength 5/5 and Lower motor strength 5/5. Sensation intact. Objective Labs 12/22/24 05:05 12/22/24 05:05 Labs: Laboratory Results - last 24 hr 12/20/24 12/20/24 12/21/24 20:11 20:17 07:30 WBC 7.3 7.5 RBC 3.30 L 2.96 L Hgb 9.8 L 8.7 L Hct 31.1 L 28.2 L MCV 94 95 MCH 29.7 29.4 MCHC 31.5 30.9 L RDW Std Deviation 50.2 H 51.8 H Plt Count 264 217 D Neut % (Auto) 63 68 Lymph % (Auto) 28 23 Cuming % (Auto) 6 7 Eos % (Auto) 2 2 Baso % (Auto) 1 1 Neut # (Auto) 4.6 5.1 Lymph # (Auto) 2.0 1.7 Cuming # (Auto) 0.4 0.5 Eos # (Auto) 0.2 0.1 Baso # (Auto) 0.1 0.1 Immature Gran # (Auto) 0.02 H 0.01 H Absolute Nucleated RBC 0.00 0.00 Immature Gran % 0 0 Nucleated RBC % 0 0 ESR 34 H Retic Count (auto) 1.6 H Absolute Retic 48.0 Immature Retic Fraction 9.8 Retic Hgb Content CHr 31.6 Sodium 138 139 Potassium 4.5 4.4 Chloride 100 103 Carbon Dioxide 29.7 28.6 Anion Gap 8 7 BUN 74 H 72 H Creatinine 2.7 H 2.4 H Estim Creat Clear Calc Not Performed. 18.9 L eGFR 17 L 20 L BUN/Creatinine Ratio 27 H 30 H Glucose [address] Glu mg/dL 146 H Hemoglobin A1c 6.7 H Calculated Osmolality 303 H 298 H Calcium 8.2 L 8.1 L Corrected Calcium 8.2 L 8.3 L Phosphorus 5.3 H Magnesium 3.7 H Iron 27 L TIBC 228 L Iron Saturation 11 L Unsat Iron Binding 201 L Ferritin 31 Total Bilirubin 0.5 0.5 AST 11 < 10 ALT 8 L 8 L Alkaline Phosphatase 91 76 C-Reactive Prot, Quant < 0.5 Total Protein 6.8 6.0 Albumin 4.4 3.8 D Globulin 2.4 2.2 L Albumin/Globulin Ratio 1.8 1.7 Triglycerides 82 Cholesterol 107 L LDL Cholesterol, Calc 55 HDL Cholesterol 36 L Cholesterol/HDL Ratio 3.0 L Vitamin B12 537 Folate 7.10 Procalcitonin 0.09 TSH 1.47 Quality Measures Quality Measures none Advance care planning discussed with:: patient Assessment & Plan Assessment Current Active Medications: Generic Name Dose Route Start Last Admin Trade Name Freq PRN Reason Stop Dose Admin Acetaminophen 650 mg 12/20/24 23:50 Acetaminophen 325 Mg Tablet PO 01/19/25 23:49 Q6H PRN Fever >100.5 Acetaminophen 650 mg 12/20/24 23:50 Acetaminophen 325 Mg Tablet PO 01/19/25 23:49 Q6H PRN PAIN SCALE 1-3 (mild Hydrocodone Bitart/Acetaminophen 1 tab 12/20/24 23:50 Hydrocodone/Apap 5/325 Tablet PO 12/25/24 23:49 Q4HR PRN PAIN SCALE 4-6 (Moderate Atorvastatin Calcium 40 mg 12/21/24 21:00 Atorvastatin Calcium 20 Mg Tablet PO 01/20/25 20:59 HS JANAE Bumetanide 1 mg 12/21/24 09:00 12/21/24 08:17 Bumetanide Inj 0.25 Mg/Ml Vial 4 Ml IVP 01/20/25 08:59 1 mg QDAY JANAE Administration Calcium Carbonate 600 mg 12/21/24 09:00 12/21/24 08:17 Calcium Carbonate 600 Mg Tablet PO 01/20/25 08:59 600 mg QDAY JANAE Administration Dextrose 25 ml 12/21/24 00:03 12/21/24 06:17 Dextrose 50%-Water Inj 50 Ml Syringe IV 01/20/25 00:02 25 ml Q15MIN PRN Administration BG 50-70 responsive npo pt Dextrose 50 ml 12/21/24 00:03 Dextrose 50%-Water Inj 50 Ml Syringe IV 01/20/25 00:02 Q15MIN PRN BG <50 OR BG <70 & pt unresponsive Diltiazem HCl 60 mg 12/21/24 09:00 12/21/24 08:17 Diltiazem 30 Mg Tablet PO 01/20/25 08:59 60 mg BID JANAE Administration Protocol Glucagon 1 mg 12/21/24 00:03 Glucagon Inj 1 Mg Vial IM Q15MIN PRN BG <70, and no IV access Hydromorphone HCl 0.5 mg 12/21/24 00:02 Hydromorphone Inj 2 Mg/Ml Vial IVP 12/25/24 23:49 Q4H PRN PAIN SCALE 7-10 (Severe Ceftriaxone Sodium 2 gm/ 50 mls @ 100 mls/hr 12/21/24 21:00 Sodium Chloride IV 12/28/24 20:59 HS [facility] Insulin Glargine 9 unit 12/21/24 00:10 12/21/24 00:32 Insulin Glargine (Lantus) 5 Unit/0.05 Ml (Per 5 Units) SC 01/20/25 00:09 Not Given HS [facility] Insulin Human Lispro 0 unit 12/21/24 00:15 12/21/24 12:33 Insulin Lispro (Admelog) 1 Unit/0.01 Ml Unit SC 01/20/25 00:14 Not Given Q6H [facility] Protocol Ondansetron HCl 4 mg 12/20/24 23:50 Ondansetron Inj 2 Mg/Ml Inj 2 Ml IV 01/19/25 23:49 Q6H PRN NAUSEA OR VOMITING Protocol Pharmacy Consult 1 each 12/20/24 22:55 Vancomycin Pharmacy To Dose 1 Each Each IV 01/19/25 22:54 QDAY PRN PROTOCOL Pregabalin 25 mg 12/21/24 00:15 12/21/24 00:47 Pregabalin 25 Mg Capsule PO 01/20/25 00:14 25 mg [facility] Administration Plan The patient is an 79-year-old female with significant past medical history of hypertension, diabetes mellitus type 2, peripheral vascular disease, hyperlipidemia, carotid ASO, neuropathy, chronic bilateral lower limb edema, history of right foot complete toe amputations, presented to ED with chief complaint of left hand and middle finger swelling associated with severe pain for past 4 to 5 days. X ray Lt hand revealed Prominent soft tissue swelling dorsum of the hand and surrounding the third digit, severe osteopenia, soft tissue vascular calcification, no acute fracture but early cortical erosions distal aspect proximal phalanx third digit. The patient was given IV ceftriaxone and vancomycin and admitted to [facility] unit for further management of possible lt third digit osteomyelitis. #Lt wrist and 3rd fingure swelling 2/2 #Possible lt 3rd digit osteomyelitis Presented to ED with chief complaint of left hand and middle finger swelling associated with severe pain for past 4 to 5 days. She reported that she has been having frequent falls, but not losing any consciousness or hitting her head on ground. Has significant history of uncontrolled DM2. ESR 34 X ray Lt hand revealed Prominent soft tissue swelling dorsum of the hand and surrounding the third digit, severe osteopenia, soft tissue vascular calcification, no acute fracture but early cortical erosions distal aspect proximal phalanx third digit. Plan -Vancomycin and Ceftriaxone IV -Ortho consulted, appreciate recommendations, Dr. De León -ID Dr. Calzada consutled, appreciate recs -Daily am labs for CBC, CMP and electrolytes -May consider surgical consultation or further imaging as needed #CHANELL on CKD stage IV #Hypertension Likely prerenal in the setting of volume overload as she has BL LL 1-2+ edema, less likely volume depletion Baseline Cr 2.2 presented with Cr 2.5, baselike GFR in 20's, BUN/ Cr 27 suggestive of prerenal etiology Plan: -Daily bumex 1mg IV -Holding Benazepril-Hydrochlorothiazide given CHANELL on CKD -Hydralazine 50 mg PO TID, may be part of patient's home medication, pending recs. If Systolic BP >180, given IVP of hydralzine X 1 -Consider kidney U/S -Avoid nephrotoxic drugs -Renally dose medications -Consider renal U/S -Daily am labs for CMP and electrolytes -Direct Support Professional Dr. Benavides consulted, appreciate reccs. #Hyperphosphatemia #Hypermagnesium Hyperphosphatemia likely secondary to long standing history of CKD. Consider Sevelamer Carbonate, pendign nephrology recommendations. Plan -Consider Sevelamer, pending nephrology recommendations Diabetes Mellilltus Type 2, insulin dependent. #Hyperglycemia, improved Patient is on multiple medications, including Degludec 38 units subq once daily and glipizide. A1c of 6.7% with average glucosse of 146. Avoid Glipizide if GFR <10. Current GFR 20. Plan: -Started on Glargine 9 units at night and SSI -Consider d/c Glipizide upon discharge as it should be avoided with GFR <10 #History of Atrial Fibrillation, rate controlled on Diltiazem Home medication of Cadiazem 60mg TID and Eliquis 5mg BID Plan: -Resumed at Diltiazem 60 mg BID -Holding Eliquis -Now the patient meets 2/3 criteria of 2.5mg BID dosing with age 79 years and Cr greater than 1.5, so if resuming eliquis, consider 2.5mg BID dosing. -Daily am monitoring for electrolytes and maintain K >4 and Mg >2. #Hypocalcemia Likely 2/2 Vit D3 deficiency 2/2 CKD IV who presented with calicium of 8.2. Plan: -Started on CaCO3 600mg daily -Vit D3 level, pending levels #Normocytic anemia. Normocytic anemia likely secondary to anemia of chronic disease or inflammmation form udnerlying diabetes mellitus and CKD. MCV within normal limits and hgb 9.8 and hct of 8.7. Folate and B12 within normal limits. Iron panel: 27 (L), TIBC 228 (L), Iron Saturation 11% Unsat iron binding 201 (L) . Ferritin within normal limits. RDW std. elevated. LIkely normocytic anemia given deccreased TIBC with normal low Ferritin. Plan: -Ferrout Sulfate 325 PO QOD -consider EPO based on nephro recs #Hyperlipidemia #PAD Home dose of Atorvastatin at 20 mg HS. Started in hospital at 40 mg HS. Lipid panel: Triglycerides 82, cholesterol 107, LDL 55, HDL 36.--> ASCVD calculator not applicable given age. Plan: -Started on atorvastatin 40mg HS -Holding aspiring in the setting of possible surgical intervention #Peripheral neuropathy Likely secondary to peripheral neuropathy from long standing diabetes mellitus. -Resumed home lyrica 25mg daily at night Health Maintenance: Dispo: admitted to med tele unit for further management of possible lt third digit osteomyelitis, pending recommendations from ortho. DVT prophylaxix: Currently holding home eliquis due to concern for possible surgical intervention Diet: Carbohydrate Consistent Low Code: Full code - The patient's plan was discussed with attending Dr. Spencer and senior residents Dr. Elly Franks MD PGY1 Internal Medicine Attending Provider Attestation/Addendum I, Demi Spencer DO, attest that I was physically present for the frank portions of the service and evaluated the patient with the resident and I reviewed and discussed the case with the resident and agree with the resident's findings and plans of care as documented above Patient seen and eval this a.m. Son is at bedside. Patient states that she has had the onset of pain in her left middle finger, particularly her PIP joint that began about 3 weeks ago. She was prescribed pain medications by her PCP with some resolution of discomfort. However, the swelling has been unchanged. She denies any calor or rubor overlying the third digit. It is very tender to palpation.Suspect gout as patient also takes HCTZ. She denies any history of gout. She denies any fevers or chills. Ortho has been consulted to further evaluate finger. MRi also pending. Low suspicion for infection. Will f/u with ortho recommendations.
--- NOTE | 2024-12-21 14:51 | PC.NURSE ---
PATIENT UNABLE TO ANSWER QUESTION FOR mri SCREENING, Joel CONTACT PHONE NUMBER IS DISCONNCTED,PHONE CALL TO NEXT OF KION DAUGHTER WENT UNANSWERED AND UNABLE TO LEAVE MESSAGE.
[2024-12-21 18:20] LABS: Uric Acid 9.6 mg/dL (3.1-7.8)
[2024-12-21] MEDS: ATORVASTATIN CALCIUM 20 MG TABLET 40 MG PO (20:17)
[2024-12-21] MEDS: cefTRIAXone 2 GM in SODIUM CHLORIDE 0.9% (Popper) 50 ML IV (20:17)
--- NOTE | 2024-12-21 21:22 | PD.ORTHCON ---
HPI Consult details Reason for consultation narrative: Pain left long finger History of present illness: Patient has a 2-week history of pain in the left long finger. The admitting doctor said it was 4 days but the family said 2 weeks. It spread gradually increasing in size. She has been seen by her family doctor. Pain became more severe 3 days prior to admission and they presented to the emergency room left long finger pain Past Medical History Past Medical History NEUROLOGIC: Negative Neurological Disorders or Seizures CARDIAC: Positive Cardiac Disorders, Coronary Artery Disease, Peripheral Vascular Disease, Hypercholesterolemia and Hypertension; Negative Congestive Heart Failure RESPIRATORY: Positive Asthma; Negative Respiratory Disorders or Chronic Obstructive Pulmonary Disease (COPD) GASTROINTESTINAL: Negative Gastrointestinal Disorders or Hepatitis GENITOURINARY: Negative Genitourinary Disorders or Renal Disease REPRODUCTIVE: Positive Previous Pregnancies MUSCULOSKELETAL: Positive Musculoskeletal Disorders and Arthritis; Negative Carpal Tunnel Syndrome ENT: Positive Cataracts ENDOCRINE: Positive Endocrine Disorders and Diabetes Mellitus Type 2; Negative Diabetes Mellitus Type 1 or Hypothyroidism HEMATOLOGIC: Negative Blood Disorders, Anemia or Clotting Problems OTHER HISTORY: Negative Hospitalization, Autoimmune Disease, Down Syndrome, Developmental Delay, Shingles, Falls, Blood Transfusions, Anesthesia Reactions, Organ Transplant, Chemotherapy, Radiation Therapy, Hyperbaric Therapy, MRSA, VRSA, Vancomycin-Resistant Enterococci, Human Immunodeficiency Virus (HIV), Chicken Pox, Measles, Mumps, Rubella ([place] Measles), Pertussis, Clostridium Difficile or Cancer Surgical History SURGICAL: Positive Tubal Ligation; Negative Abdominal Surgery, Nephrectomy, Joint Replacement, Amputation, Open Reduction Internal Fixation, Arthroscopy, Neurologic Surgery, Brain Shunt, Mastectomy, Lumpectomy, Hysterectomy or Organ Transplant Social History SMOKING STATUS: Never smoker Meds Home Medications and Allergies Home Medications ?Medication ?Instructions ?Recorded ?Confirmed ?Type glipizide 10 mg tablet 10 mg PO BID 11/30/21 12/24/21 History hydralazine 50 mg tablet 50 mg PO TID 11/30/21 12/24/21 History atorvastatin 20 mg tablet 20 mg PO HS 12/24/21 12/24/21 History benazepril 10 1 tab PO QDAY 12/24/21 12/24/21 History mg-hydrochlorothiazide 12.5 mg tablet bumetanide 1 mg tablet 1 mg PO QDAY 12/24/21 12/24/21 History insulin degludec 200 unit/mL (3 38 unit subcut QAM 05/02/22 05/02/22 History mL) subcutaneous pen (Tresiba FlexTouch U-200 insulin) Allergies Allergy/AdvReac Type Severity Reaction Status Date / Time No Known Allergies Allergy Verified 12/20/24 19:15 Exam Vital Signs Temp Pulse Resp BP Pulse Ox O2 Del Method 97.7 F 77 17 172/84 H 94 L Room Air 12/21/24 20:00 12/21/24 20:26 12/21/24 20:00 12/21/24 20:26 12/21/24 20:00 12/21/24 20:00 Blood pressure 172/84, temp 97.7 Narrative Exam Physical examination shows that her chief complaint is in her left hand She does have pain in her left long finger there is swelling of the left long finger it is more pronounced in the proximal phalange E and then less in the middle phalange E and even less in the distal phalanges. She is able to flex and extend her finger. She has absolutely no pain to palpation over the flexor tendon sheath. Does have pain to palpation proximal phalange E PIP joint. Other 4 fingers without pain Results - Ortho Labs 12/21/24 07:30 12/21/24 07:30 Labs: Short CBC 12/21/24 Range/Units 07:30 WBC 7.5 (3.6-11.0) Thou/mm3 Hgb 8.7 L (12.0-16.0) g/dL Hct 28.2 L (36.0-46.0) % Plt Count 217 D (140-440) Thou/mm3 BMP 12/21/24 07:30 Sodium 139 Potassium 4.4 Chloride 103 Carbon Dioxide 28.6 BUN 72 H Creatinine 2.4 H Glucose 95 D Calcium 8.1 L Liver Function 12/21/24 Range/Units 07:30 Total Bilirubin 0.5 (0.3-1.2) mg/dL AST < 10 (0-34) U/L ALT 8 L (10-49) U/L Alkaline Phosphatase 76 (46-116) U/L Albumin 3.8 D (3.4-4.8) gm/dL White count 7500. There is no predominance of neutrophils. CRP unremarkable sed rate 37, procalcitonin unremarkable Assessment & Plan Additional Assessment Additional comments: Patient has multiple medical problems including diabetes peripheral neuropathy peripheral vascular disease. She has extensive calcification of the digital arteries to the fingers. Does have soft tissue swelling of the left long finger. I do not see any erosive arthritis I do not see any lytic lesions of the left long finger. She has some type of dactylitis. I want to get a uric acid. Recommend Dr Calzada take a look at her tomorrow. Needs MRI scan left hand Plan MRI scan left hand in a.m. I requested uric acid for tonight.
--- NOTE | 2024-12-21 21:33 | PD.ORTHCONPN ---
Subjective Subjective Brief History: Patient has a 2-week history of pain in the left long finger. The admitting doctor said it was 4 days but the family said 2 weeks. It spread gradually increasing in size. She has been seen by her family doctor. Pain became more severe 3 days prior to admission and they presented to the emergency room left long finger pain Narrative: Patient has uric acid 9.6. It looks like gouty dactylitis Exam Vital Signs Temp Pulse Resp BP Pulse Ox O2 Del Method 97.7 F 77 17 172/84 H 94 L Room Air 12/21/24 20:00 12/21/24 20:26 12/21/24 20:00 12/21/24 20:26 12/21/24 20:00 12/21/24 20:00 Objective - Ortho Labs 12/21/24 07:30 12/21/24 07:30 Labs: Laboratory Results - last 24 hr 12/20/24 12/20/24 12/21/24 20:11 20:17 07:30 WBC 7.5 RBC 2.96 L Hgb 8.7 L Hct 28.2 L MCV 95 MCH 29.4 MCHC 30.9 L RDW Std Deviation 51.8 H Plt Count 217 D Neut % (Auto) 68 Lymph % (Auto) 23 [place] % (Auto) 7 Eos % (Auto) 2 Baso % (Auto) 1 Neut # (Auto) 5.1 Lymph # (Auto) 1.7 [place] # (Auto) 0.5 Eos # (Auto) 0.1 Baso # (Auto) 0.1 Immature Gran # (Auto) 0.01 H Absolute Nucleated RBC 0.00 Immature Gran % 0 Nucleated RBC % 0 ESR 34 H Retic Count (auto) 1.6 H Absolute Retic 48.0 Immature Retic Fraction 9.8 Retic Hgb Content CHr 31.6 Sodium 139 Potassium 4.4 Chloride 103 Carbon Dioxide 28.6 Anion Gap 7 BUN 72 H Creatinine 2.4 H Estim Creat Clear Calc 18.9 L eGFR 20 L BUN/Creatinine Ratio 30 H Glucose [address] Glu mg/dL 146 H Hemoglobin A1c 6.7 H Calculated Osmolality 298 H Uric Acid Calcium 8.1 L Corrected Calcium 8.3 L Phosphorus 5.3 H Magnesium 3.7 H Iron 27 L TIBC 228 L Iron Saturation 11 L Unsat Iron Binding 201 L Ferritin 31 Total Bilirubin 0.5 AST < 10 ALT 8 L Alkaline Phosphatase 76 C-Reactive Prot, Quant < 0.5 Total Protein 6.0 Albumin 3.8 D Globulin 2.2 L Albumin/Globulin Ratio 1.7 Triglycerides 82 Cholesterol 107 L LDL Cholesterol, Calc 55 HDL Cholesterol 36 L Cholesterol/HDL Ratio 3.0 L Vitamin B12 537 Folate 7.10 Procalcitonin 0.09 TSH 1.47 12/21/24 17:41 WBC RBC Hgb Hct MCV MCH MCHC RDW Std Deviation Plt Count Neut % (Auto) Lymph % (Auto) [place] % (Auto) Eos % (Auto) Baso % (Auto) Neut # (Auto) Lymph # (Auto) [place] # (Auto) Eos # (Auto) Baso # (Auto) Immature Gran # (Auto) Absolute Nucleated RBC Immature Gran % Nucleated RBC % ESR Retic Count (auto) Absolute Retic Immature Retic Fraction Retic Hgb Content CHr Sodium Potassium Chloride Carbon Dioxide Anion Gap BUN Creatinine Estim Creat Clear Calc eGFR BUN/Creatinine Ratio Glucose Estimated Ave Glu mg/dL Hemoglobin A1c Calculated Osmolality Uric Acid 9.6 H Calcium Corrected Calcium Phosphorus Magnesium Iron TIBC Iron Saturation Unsat Iron Binding Ferritin Total Bilirubin AST ALT Alkaline Phosphatase C-Reactive Prot, Quant Total Protein Albumin Globulin Albumin/Globulin Ratio Triglycerides Cholesterol LDL Cholesterol, Calc HDL Cholesterol Cholesterol/HDL Ratio Vitamin B12 Folate Procalcitonin TSH Assessment & Plan Assessment Additional comments: It looks like she has gout of the left long finger Plan We we will get internal medicine to help us with treatment of acute gouty arthropathy Documentation for date of: 12/21/24
[2024-12-22] VITALS (11 sets, daily range): BP systolic 142–179; BP diastolic 64–97; PULSE 68–94; RESP 13–20; TEMP 36.2–37.3; O2SAT 92–94; BMI 39.6
--- NOTE | 2024-12-22 | XR_ITS ---
Examination: MRI left hand, without contrast Date and time of exam: December 22, 2024 at 1804 hours INDICATIONS: Swelling redness and pain involving the third digit beginning 3 days ago Technique: Multiple axial sagittal and coronal images of the left hand have been obtained with the Siemens high-resolution 1.5 [place] MRI scanner. Images obtained include T2-weighted fat-suppressed sagittal sections, TR 3500, TE 46, T2 weighted coronal fat suppressed images, TR 3050, TE 84, T2-weighted transverse fat suppressed images, TR 3260, TE 63, proton density transverse images, TR 4720 TE 46, and T1 weighted coronal images, TR 560, TE 13. Findings: Extensive edema in the soft tissue surrounding the third digit Thickening of the flexor tendon, tendinosis pattern Soft tissue defect dorsum of the third digit at the level of the base of the proximal phalanx Extensor tendon intact Negative for cortical bone destruction No annular saw tear IMPRESSION: Extensive edema in the soft tissues surrounding the third digit Flexor tendinosis No soft tissue abscess Negative for osteomyelitis
[2024-12-22 06:11] LABS: Basophils # (Auto) 0.1 Thou/mm3 (0.0-0.2); Basophils % (Auto) 1 % (0-2.5); Eosinophils # (Auto) 0.2 Thou/mm3 (0.0-0.5); Eosinophils % (Auto) 2 % (0-10); Hematocrit 29.7 % (36.0-46.0); Hemoglobin 9.3 g/dL (12.0-16.0); Immature Granulocytes % (Auto) 0 % (0-0); Immature Granulocytes Auto 0.02 Thou/mm3 (0.00-0.00); Lymphocytes # (Auto) 1.8 Thou/mm3 (1.0-4.8); Lymphocytes % (Auto) 25 % (10-50); Mean Corpuscular HGB Conc 31.3 g/dl (31.0-37.0); Mean Corpuscular Hemoglobin 29.3 pg (25.0-35.0); Mean Corpuscular Volume 94 fL (80-100); Monocytes # (Auto) 0.4 Thou/mm3 (0.0-0.8); Monocytes % (Auto) 6 % (0-12); Neutrophils # (Auto) 4.6 Thou/mm3 (1.8-7.7); Neutrophils % (Auto) 65 % (37-80); Nucleated Red Blood Cell % 0 /100 WBC (0); Platelet Count 227 Thou/mm3 (140-440); RDW Standard Deviation 49.6 fL (36.4-46.3); Red Blood Count 3.17 Miln/mm3 (4.00-5.20); White Blood Count 7.1 Thou/mm3 (3.6-11.0)
[2024-12-22 06:42] LABS: Alanine Aminotransferase < 7 U/L (10-49); Albumin, Serum 3.7 gm/dL (3.4-4.8); Albumin/Globulin Ratio 1.6 (1.2-2.2); Alkaline Phosphatase 87 U/L (46-116); Anion Gap 9 (7-16); Aspartate Amino Transferase < 10 U/L (0-34); BUN/Creatinine Ratio 33 Ratio (12-20); Bilirubin,Total 0.6 mg/dL (0.3-1.2); Blood Urea Nitrogen 69 mg/dL (9-23); Calcium 8.1 mg/dL (8.3-10.6); Calcium (Corrected) 8.3 mg/dL (8.5-10.1); Carbon Dioxide 27.6 mMol/L (20.0-31.0); Chloride 106 mMol/L (98-107); Creatinine (Component) 2.1 mg/dL (0.6-1.3); Estimated Creatinine Clearance 21.6 mL/min (>60); Globulin 2.3 gm/dL (2.3-3.5); Glucose 110 mg/dL (74-106); Magnesium 3.4 mg/dL (1.6-2.6); Osmolality,Calculated 306 (275-295); Phosphorous 4.7 mg/dL (2.4-5.1); Potassium 4.5 mMol/L (3.4-5.1); Sodium 143 mMol/L (136-145); Uric Acid 9.5 mg/dL (3.1-7.8); Vancomycin,Random 9.9 mcg/mL; eGFR 23 See Note
[2024-12-22] MEDS: BUMETANIDE INJ 0.25 MG/ML VIAL 4 ML 1 MG IVP (08:05)
[2024-12-22] MEDS: HYDROcodone/APAP 5/325 TABLET 1 TAB PO (08:06)
[2024-12-22] MEDS: DILTIAZEM 30 MG TABLET 60 MG PO ×2 (08:06→20:41)
[2024-12-22] MEDS: CALCIUM CARBONATE 600 MG TABLET PO (08:06)
[2024-12-22] MEDS: predniSONE 20 MG TABLET 40 MG PO (08:06)
--- NOTE | 2024-12-22 08:42 | ESPR_ITS ---
Documentation for date of: 12/22/24 Subjective Subjective Interval history: Mr. Carter is a 79-year-old lady with extensive past medical history of hypertension, diabetes type 2, peripheral vascular disease with right metatarsal amputation, dyslipidemia, carotid ASO, diabetic neuropathy, congestive cardiac failure, lower extremity edema-mostly wheelchair-bound, CKD stage IIIb under my care for many years presented to the emergency department with significant pain in the left hand especially in the middle finger going on for the last few days. She reported fall but no loss of consciousness. Pain was so bad that she presented herself to the ER. In the emergency department Hemoglobin was 9.8, sedimentation rate 34, BUN 74, creatinine 2.7 with a GFR of 17, blood sugar 211, calcium 8.2, x-ray showed osteopenia with early cortical erosions. Admitted to the hospitalist team. Renal consultation requested for CHANELL on CKD. Home medications included Lipitor, benazepril/hydrochlorothiazide, bumetanide, diltiazem, glipizide, hydralazine, insulin 12/21/2024 patient currently seen in medical floor. Blood pressure 172/84, heart rate 77. Hemoglobin 8.7. Creatinine 2.4 today, A1c 6.7, uric acid 9.6, calcium 8.3, phosphorus 5.3, magnesium 3.7, iron saturation 11, ferritin 31, LFTs normal, albumin 3.8, LDL 55, B12 537, TSH normal. 12/22/24: Patient is currently seen in [facility]. There were no major overnight events the patient was feeling okay this morning. Patient's electrolytes were within normal limits and her BUN is 69 with a creatinine of 2.1 which is improved compared to yesterday. Patient is pending further workup for her left third digit for possible gout. Uric acid is elevated at 9.5. Recommended echocardiogram to rule out possible cardiorenal syndrome. Patient's last edematous today. Continue Bumex 1 mg IV daily. Exam Vital Signs Temp Pulse Resp BP Pulse Ox O2 Del Method 97.8 F 86 19 148/86 H 94 L Room Air 12/22/24 04:00 12/22/24 08:06 12/22/24 04:00 12/22/24 08:06 12/22/24 04:00 12/22/24 04:00 Narrative Exam GENERAL APPEARANCE: Elderly lady-patient seems to be comfortable, adequately hydrated and nourished. HEENT: EOMI, PERRLA NECK: Neck supple, no JVD or bruit CARDIOVASCULAR: Heart regular,2/6 murmurs LUNGS/CHEST: Chest clear to auscultation. No rales, rhonchi, wheezing ABDOMEN: Soft, nontender, nondistended. No masses. Normal bowel sounds. EXTREMITIES: Trace edema in the lower extremities SKIN: Skin exam normal without any rashes MUSCULOSKELETAL: Left hand is swollen especially the left third digit NEUROLOGICAL : No neurological deficits-able to move all extremities, awake and alert Objective Labs 12/23/24 04:40 12/23/24 04:40 Labs: Laboratory Results - last 24 hr 12/21/24 12/21/24 12/22/24 07:30 17:41 05:05 WBC 7.1 RBC 3.17 L Hgb 9.3 L Hct 29.7 L MCV 94 MCH 29.3 MCHC 31.3 RDW Std Deviation 49.6 H Plt Count 227 Neut % (Auto) 65 Lymph % (Auto) 25 [place] % (Auto) 6 Eos % (Auto) 2 Baso % (Auto) 1 Neut # (Auto) 4.6 Lymph # (Auto) 1.8 [place] # (Auto) 0.4 Eos # (Auto) 0.2 Baso # (Auto) 0.1 Immature Gran # (Auto) 0.02 H Absolute Nucleated RBC 0.00 Immature Gran % 0 Nucleated RBC % 0 Sodium 143 Potassium 4.5 Chloride 106 Carbon Dioxide 27.6 Anion Gap 9 BUN 69 H Creatinine 2.1 H Estim Creat Clear Calc 21.6 L eGFR 23 L BUN/Creatinine Ratio 33 H Glucose 110 H Calculated Osmolality 306 H Uric Acid 9.6 H 9.5 H Calcium 8.1 L Corrected Calcium 8.3 L Phosphorus 4.7 Magnesium 3.4 H Iron 27 L TIBC 228 L Iron Saturation 11 L Unsat Iron Binding 201 L Ferritin 31 Total Bilirubin 0.6 AST < 10 ALT < 7 L Alkaline Phosphatase 87 Total Protein 6.0 Albumin 3.7 Globulin 2.3 Albumin/Globulin Ratio 1.6 Folate 7.10 Random Vancomycin 9.9 Quality Measures Quality Measures none Advance care planning discussed with:: patient Assessment & Plan Assessment Current Active Medications: Generic Name Dose Route Start Last Admin Trade Name Freq PRN Reason Stop Dose Admin Acetaminophen 650 mg 12/20/24 23:50 Acetaminophen 325 Mg Tablet PO 01/19/25 23:49 Q6H PRN Fever >100.5 Acetaminophen 650 mg 12/20/24 23:50 Acetaminophen 325 Mg Tablet PO 01/19/25 23:49 Q6H PRN PAIN SCALE 1-3 (mild Hydrocodone Bitart/Acetaminophen 1 tab 12/20/24 23:50 12/22/24 08:06 Hydrocodone/Apap 5/325 Tablet PO 12/25/24 23:49 1 tab Q4HR PRN Administration PAIN SCALE 4-6 (Moderate Atorvastatin Calcium 40 mg 12/21/24 21:00 12/21/24 20:17 Atorvastatin Calcium 20 Mg Tablet PO 01/20/25 20:59 40 mg HS JANAE Administration Bumetanide 1 mg 12/21/24 09:00 12/22/24 08:05 Bumetanide Inj 0.25 Mg/Ml Vial 4 Ml IVP 01/20/25 08:59 1 mg QDAY JANAE Administration Calcium Carbonate 600 mg 12/21/24 09:00 12/22/24 08:06 Calcium Carbonate 600 Mg Tablet PO 01/20/25 08:59 600 mg QDAY JANAE Administration Dextrose 25 ml 12/21/24 00:03 12/21/24 06:17 Dextrose 50%-Water Inj 50 Ml Syringe IV 01/20/25 00:02 25 ml Q15MIN PRN Administration BG 50-70 responsive npo pt Dextrose 50 ml 12/21/24 00:03 Dextrose 50%-Water Inj 50 Ml Syringe IV 01/20/25 00:02 Q15MIN PRN BG <50 OR BG <70 & pt unresponsive Diltiazem HCl 60 mg 12/21/24 09:00 12/22/24 08:06 Diltiazem 30 Mg Tablet PO 01/20/25 08:59 60 mg BID JANAE Administration Protocol Ferrous Sulfate 325 mg 12/21/24 17:45 12/21/24 18:21 Ferrous Sulf 325 Mg Tablet PO 01/20/25 17:44 Not Given QOD JANAE Glucagon 1 mg 12/21/24 00:03 Glucagon Inj 1 Mg Vial IM Q15MIN PRN BG <70, and no IV access Hydralazine HCl 10 mg 12/21/24 18:13 Hydralazine Inj 20 Mg/Ml Vial IV 01/20/25 18:12 Q4HR PRN Hypertension Hydromorphone HCl 0.5 mg 12/21/24 00:02 Hydromorphone Inj 2 Mg/Ml Vial IVP 12/25/24 23:49 Q4H PRN PAIN SCALE 7-10 (Severe Ceftriaxone Sodium 2 gm/ 50 mls @ 100 mls/hr 12/21/24 21:00 12/21/24 20:17 Sodium Chloride IV 12/28/24 20:59 100 mls/hr HS JANAE Administration Vancomycin HCl/Dextrose 250 mls @ 120 mls/hr 12/22/24 10:00 Vancomycin/D5w 1,250 Mg Ivpb IV 12/22/24 12:04 X1 ONE Insulin Glargine 9 unit 12/21/24 00:10 12/21/24 20:26 Insulin Glargine (Lantus) 5 Unit/0.05 Ml (Per 5 Units) SC 01/20/25 00:09 Not Given HS JANAE Insulin Human Lispro 0 unit 12/22/24 07:30 12/22/24 07:54 Insulin Lispro (Admelog) 1 Unit/0.01 Ml Unit SC 01/21/25 07:29 Not Given ACHS JANAE Protocol Ondansetron HCl 4 mg 12/20/24 23:50 Ondansetron Inj 2 Mg/Ml Inj 2 Ml IV 01/19/25 23:49 Q6H PRN NAUSEA OR VOMITING Protocol Pharmacy Consult 1 each 12/20/24 22:55 Vancomycin Pharmacy To Dose 1 Each Each IV 01/19/25 22:54 QDAY PRN PROTOCOL Prednisone 40 mg 12/22/24 09:00 12/22/24 08:06 Prednisone 20 Mg Tablet PO 12/29/24 07:42 40 mg QDAY JANAE Administration Pregabalin 25 mg 12/21/24 00:15 12/21/24 20:17 Pregabalin 25 Mg Capsule PO 01/20/25 00:14 25 mg HS JANAE Administration Plan 79-year-old lady with extensive past medical history of hypertension, diabetes type 2, peripheral vascular disease with right metatarsal amputation, dyslipidemia, carotid ASO, diabetic neuropathy, congestive cardiac failure, lower extremity edema-mostly wheelchair-bound, CKD stage IIIb admitted for CHANELL on CKD as well as possible osteomyelitis of the left third digit versus acute gout. #Acute on chronic renal failure: Acute on chronic renal failure secondary to prerenal azotemia. Patient clinically looks rather hypervolemic with significant edema. Will need to rule out congestive heart failure. Rule out diabetic nephropathy with proteinuria. Check urine protein/creatinine and renal ultrasound. Strict I&O's ordered. Agree with diuretics. Agree with steroids for suspected gout as patient's renal function improves Plan: ?Recommend echocardiogram ? Bilateral renal ultrasound ordered ? Urine total protein ordered ? Urine microalbumin/creatinine ratio ordered ? Strict ARIN's ? Continue with Bumex 1 mg IV daily ? Avoid nephrotoxic medications #Hypertension: #Diabetes: #Hyperlipidemia: #Left third digit osteomyelitis versus gouty arthritis ? Managed by primary team Thank you for allowing us to be part of patient's care during her time in [facility] I discussed patient's care with attending physician, Dr Kennedy Bautista PGY3 Attending Provider Attestation/Addendum Patient seen and examined with resident physician Dr. Bautista. Note reviewed, agree with findings and recommendations. Significant pain in the left third finger-most likely gouty arthritis Creatinine tad better with Diuretics.
[2024-12-22] MEDS: VANCOMYCIN/D5W 1,250 MG IVPB 250 ML 120 MG IV (09:28)
--- NOTE | 2024-12-22 09:39 | XR_ITS ---
Examination: Retroperitoneal ultrasound, complete Technique: Multiple high resolution grayscale images of the retroperitoneum obtained, including kidneys and bladder. Exam date and time:December 22, 2024 1143 hours INDICATIONS: Diagnosis chronic kidney disease, diagnosis diabetes FINDINGS: Right kidney 9.0 cm renal cortex 1.4 cm Left kidney 10.0 cm cortex 0.9 cm Moderate renal parenchymal scar formation No hydronephrosis No bladder mass or bladder calculi, bladder prevoid volume 209 cc unable to urinate IMPRESSION: Small kidneys with bilateral renal cortical thinning Moderate bilateral renal parenchyma scar formation No hydronephrosis
[2024-12-22] MEDS: SENNA/DOCUSATE SOD 1 TAB TABLET PO (11:41)
[2024-12-22] MEDS: INSULIN LISPRO (AdmeLOG) 1 UNIT/0.01 ML UNIT SC ×3 (12:43→20:41)
--- NOTE | 2024-12-22 13:00 | PD.RESPROC ---
Procedures Procedure Date / Time 12/24/24 3405
[2024-12-22 14:03] LABS: Creatinine MALB Rnd Ur 19 mg/dL (30-125); Microalbumin Creat Ratio 58 mg/gCrea (<30); Microalbumin, Random Urine 11 mg/L (0-300); Protein Total, Random Urine 11 mg/dL (1-14)
--- NOTE | 2024-12-22 15:11 | PD.IDPROG ---
Subjective Subjective Interval history: hand process. less likely infection. more likely gout. hyperuricemia noted. rather high. on rx to lower it. on prednisone with ckd Exam Vital Signs Temp Pulse Resp BP Pulse Ox O2 Del Method 97.1 F 86 20 150/66 H 92 L Room Air 12/22/24 11:26 12/22/24 12:00 12/22/24 11:26 12/22/24 11:26 12/22/24 08:00 12/22/24 11:26 Narrative Exam rt hand problem for 3 days. sadly, imaging changes suggest problem was a while ago Objective - Internal Medicine Labs 12/22/24 05:05 12/22/24 05:05 Labs: Laboratory Results - last 24 hr 12/21/24 12/22/24 12/22/24 17:41 05:05 12:50 WBC 7.1 RBC 3.17 L Hgb 9.3 L Hct 29.7 L MCV 94 MCH 29.3 MCHC 31.3 RDW Std Deviation 49.6 H Plt Count 227 Neut % (Auto) 65 Lymph % (Auto) 25 [place] % (Auto) 6 Eos % (Auto) 2 Baso % (Auto) 1 Neut # (Auto) 4.6 Lymph # (Auto) 1.8 [place] # (Auto) 0.4 Eos # (Auto) 0.2 Baso # (Auto) 0.1 Immature Gran # (Auto) 0.02 H Absolute Nucleated RBC 0.00 Immature Gran % 0 Nucleated RBC % 0 Sodium 143 Potassium 4.5 Chloride 106 Carbon Dioxide 27.6 Anion Gap 9 BUN 69 H Creatinine 2.1 H Estim Creat Clear Calc 21.6 L eGFR 23 L BUN/Creatinine Ratio 33 H Glucose 110 H Calculated Osmolality 306 H Uric Acid 9.6 H 9.5 H Calcium 8.1 L Corrected Calcium 8.3 L Phosphorus 4.7 Magnesium 3.4 H Total Bilirubin 0.6 AST < 10 ALT < 7 L Alkaline Phosphatase 87 Total Protein 6.0 Albumin 3.7 Globulin 2.3 Albumin/Globulin Ratio 1.6 Ur Random Microalbumin 11 U Random Total Protein 11 U Creat (Microalbumin) 19 L Microalb/Creat Ratio 58 H Random Vancomycin 9.9 Assessment & Plan A&P Narrative infection of hand vs gout. more likely to be gout. no objection to mri. will check in again friday Time Spent With Patient Time: Total time spent is greater than 50% in coordination of care (as documented) at patient's floor/unit and/or counseling patient:
[2024-12-22] MEDS: LOSARTAN POTASSIUM 25 MG TABLET PO (16:57)
--- NOTE | 2024-12-22 17:00 | ESPR_ITS ---
Documentation for date of: 12/22/2024 Subjective Subjective Interval history: No overnight events. Yann is currently pending MRI to rule out osteomyelititis of the left third digit as per recommendations from ortho. Patient started on steriods. Elevated Uric acid levels. Improved pain of third digit. No pyrexia overnight. Discharge within the next 24 hours after MRI of hand. Exam Vital Signs Temp Pulse Resp BP Pulse Ox O2 Del Method 97.1 F 89 18 165/96 H 95 Room Air 12/23/24 11:34 12/23/24 15:20 12/23/24 15:20 12/23/24 15:20 12/23/24 15:20 12/23/24 15:20 Narrative Exam General Appearance: Alert & Oriented X3, well-nourished female who is lying in bed in no acute distress. Edema noted on left 3rd digit with mild erythema, tender to touch, and not warm to touch. HEENT: Skull symmetrical and atraumatic. Conjunctivae pin and moist. Pupils equal, round, reactive to light and accommodation (PERRL). External ear without lesion or discharge. Straight, nares patient, mucosa pink, no discharge. No thyroid nodule appreciated. No cervical lymphadenopathy. Cardio: Normal Rate and Rhythm with S1 and S2 heart sounds. No murmurs or extra heart sounds auscultated. No bruits on carotid auscultation. No peripheral edema or cyanosis. Lungs: Symmetric with good expansion. Chest and back non-tender. Breath sounds vesicular without crackles, wheezing or rhonchi Abdomen: Non-tender, Non-distended, Normal Reactive Bowel Sounds Neuro: Alert, cooperative, oriented to person, place, and time. Speech clear. CN grossly intact. Upper motor strength 5/5 and Lower motor strength 5/5. Sensation intact. Objective Labs 12/23/24 04:40 12/23/24 04:40 Quality Measures Quality Measures VTE prophylaxis Advance care planning discussed with:: patient Assessment & Plan Plan The patient is an 79-year-old female with significant past medical history of hypertension, diabetes mellitus type 2, peripheral vascular disease, hyperlipidemia, carotid ASO, neuropathy, chronic bilateral lower limb edema, history of right foot complete toe amputations, presented to ED with chief complaint of left hand and middle finger swelling associated with severe pain for past 4 to 5 days. X ray Lt hand revealed Prominent soft tissue swelling dorsum of the hand and surrounding the third digit, severe osteopenia, soft tissue vascular calcification, no acute fracture but early cortical erosions distal aspect proximal phalanx third digit. The patient was given IV ceftriaxone and vancomycin and admitted to [facility] for further management of possible lt third digit osteomyelitis. #Gout of 3rd digit #3rd digit osteomyelitis, less likely Presented to ED with chief complaint of left hand and middle finger swelling associated with severe pain for past 4 to 5 days. She reported that she has been having frequent falls, but not losing any consciousness or hitting her head on ground. Has significant history of uncontrolled DM2. ESR 34. Antibiotics D/C as this is less likely osteomyelitis there has been no pyrexia or elevated WBC. Uric acid elevated. Pending MRI results. Started on steriods given history of CKD. X ray Lt hand revealed Prominent soft tissue swelling dorsum of the hand and surrounding the third digit, severe osteopenia, soft tissue vascular calcification, no acute fracture but early cortical erosions distal aspect proximal phalanx third digit. Plan -Prednisone 40 mg qday, until acute flare up resolves, follow with PCP. -Ortho consulted, appreciate recommendations, Dr. De León -ID Dr. Calzada consutled, appreciate recs #CHANELL on CKD stage IV, improving #Hypertension Likely prerenal in the setting of volume overload as she has BL LL 1-2+ edema, less likely volume depletion Baseline Cr 2.2 presented with Cr 2.5, baseline GFR in 20's, BUN/ Cr 27 suggestive of prerenal etiology. CKD likely secondary to long standing diabetes mellitus. Plan: -Daily bumex 1mg IV -Holding Benazepril-Hydrochlorothiazide given CHANELL on CKD -->please stop upon discharge as Hydrochlorothiazide increases risk of gout -Hydralazine 50 mg PO TID, may be part of patient's home medication, pending recs. If Systolic BP >180, given IVP of hydralzine X 1 -pending renal US -Avoid nephrotoxic drugs -Renally dose medications -Supervisor Modern [employer] Dr. Benavides consulted, appreciate reccs. #Hyperphosphatemia, improved #Hypermagnesium, improved Hyperphosphatemia likely secondary to long standing history of CKD. Consider Sevelamer Carbonate, pending nephrology recommendations. Plan -Consider Sevelamer, pending nephrology recommendations Diabetes Mellitus Type 2, insulin dependent. #Hyperglycemia, improved Patient is on multiple medications, including Degludec 38 units subq once daily and glipizide. A1c of 6.7% with average glucosse of 146. Avoid Glipizide if GFR <10. Current GFR 20. Plan: -Started on Glargine 9 units at night and SSI -Consider d/c Glipizide upon discharge as it should be avoided with GFR <10 #History of Atrial Fibrillation, rate controlled on Diltiazem Home medication of Cadiazem 60mg TID and Eliquis 5mg BID Plan: -Resumed at Diltiazem 60 mg BID -Holding Eliquis -Now the patient meets 2/3 criteria of 2.5mg BID dosing with age 79 years and Cr greater than 1.5, so if resuming eliquis, consider 2.5mg BID dosing. -Daily am monitoring for electrolytes and maintain K >4 and Mg >2. #Hypocalcemia Likely 2/2 Vit D3 deficiency 2/2 CKD IV who presented with calicium of 8.2. Plan: -Started on CaCO3 600mg daily -Vit D3 level, pending levels #Normocytic anemia. Normocytic anemia likely secondary to anemia of chronic disease or inflammation form underlying diabetes mellitus and CKD. MCV within normal limits and hgb 9.8 and hct of 8.7. Folate and B12 within normal limits. Iron panel: 27 (L), TIBC 228 (L), Iron Saturation 11% Unsat iron binding 201 (L) . Ferritin within normal limits. RDW std. elevated. Likely normocytic anemia given decreased TIBC with normal low Ferritin. Plan: -Ferrout Sulfate 325 PO QOD -consider EPO based on nephro recs #Hyperlipidemia #PAD Home dose of Atorvastatin at 20 mg HS. Started in hospital at 40 mg HS. Lipid panel: Triglycerides 82, cholesterol 107, LDL 55, HDL 36.--> ASCVD calculator not applicable given age. Plan: -Started on atorvastatin 40mg HS -Holding aspiring in the setting of possible surgical intervention #Peripheral neuropathy Likely secondary to peripheral neuropathy from long standing diabetes mellitus. -Resumed home lyrica 25mg daily at night Health Maintenance: Dispo: admitted to med tele unit for further management of possible lt third digit osteomyelitis, pending MRI to rule out osteo DVT prophylaxix: Currently holding home eliquis due to concern for possible surgical intervention Diet: Carbohydrate Consistent Low Code: Full code - The patient's plan was discussed with attending Dr. Tj Franks MD PGY1 Internal Medicine
--- NOTE | 2024-12-22 18:25 | ESCONSULT_ITS ---
RE: CARINE STARR : 1945 DATE OF CONSULTATION: 12/22/2024 REFERRING PHYSICIAN: Lora South MD REASON FOR CONSULTATION: Gout versus right-hand osteomyelitis. HISTORY OF PRESENT ILLNESS: The patient is an 79-year-old diabetic who is a poor historian, otherwise pleasant and cooperative. She is accompanied by her and another relative who is modestly helpful, but all speak only [place]. She has known peripheral vascular disease, prior right TMA, the right foot and maybe diabetes-related kidney disease. She also has chronic kidney disease stage III, which is rather stable and a history of hyperuricemia. MEDICAL PROBLEMS: Include diabetes, pulmonary hypertension, gout, anemia, chronic kidney disease, hypertension, and peripheral vascular disease. SURGICAL HISTORY: Includes a prior right foot transmetatarsal amputation. ALLERGIES: NOTED IN THE RECORD. IMMUNIZATIONS: Not pursued. FAMILY HISTORY: Noncontributory. SOCIAL HISTORY: The patient lives with her and potential other relatives. PHYSICAL EXAMINATION: General: Well-appearing. HEENT: Benign. Heart: Benign. Lungs: Benign. Extremity: The right hand is not that swollen, relatively benign appearing. MRI is planned. Ideally, one has a biopsy of the area to guide treatment. If we have to send her to a hand surgeon, that would be acceptable, but I think the MRI will safely rule out osteomyelitis, that is fine, but I think right now gout seems much more likely than osteomyelitis. To that end I am going to stop her antibiotics. We will wait on the MRI scan and I will follow her up again on Friday. DT: 16:06:51 TT: 17:09:00 Ref: [id number] - TID: [id number] MTDD
[2024-12-22] MEDS: INSULIN GLARGINE (Lantus) 5 UNIT/0.05 ML (PER 5 UNITS) 20 UNIT SC (20:40)
[2024-12-22] MEDS: ATORVASTATIN CALCIUM 20 MG TABLET 40 MG PO (20:41)
[2024-12-22] MEDS: PREGABALIN 25 MG CAPSULE PO (20:41)
--- NOTE | 2024-12-22 21:21 | CONPN_ITS ---
Subjective Subjective Brief History: Patient has a 2-week history of pain in the left long finger. The admitting doctor said it was 4 days but the family said 2 weeks. It spread gradually increasing in size. She has been seen by her family doctor. Pain became more severe 3 days prior to admission and they presented to the emergency room left long finger pain Narrative: Having much less pain tonight. Swelling down remarkably Exam Vital Signs Temp Pulse Resp BP Pulse Ox O2 Del Method 99.1 F 94 17 149/81 H 93 L Room Air 12/22/24 20:00 12/22/24 20:41 12/22/24 20:00 12/22/24 20:41 12/22/24 20:00 12/22/24 20:00 Temp 99.1. Blood pressure 149/81. Narrative Exam Remarkable decrease in swelling of left long finger. Much better flexion. Much less pain Objective - Ortho Labs 12/22/24 05:05 12/22/24 05:05 Labs: Laboratory Results - last 24 hr 12/22/24 12/22/24 05:05 12:50 WBC 7.1 RBC 3.17 L Hgb 9.3 L Hct 29.7 L MCV 94 MCH 29.3 MCHC 31.3 RDW Std Deviation 49.6 H Plt Count 227 Neut % (Auto) 65 Lymph % (Auto) 25 [place] % (Auto) 6 Eos % (Auto) 2 Baso % (Auto) 1 Neut # (Auto) 4.6 Lymph # (Auto) 1.8 [place] # (Auto) 0.4 Eos # (Auto) 0.2 Baso # (Auto) 0.1 Immature Gran # (Auto) 0.02 H Absolute Nucleated RBC 0.00 Immature Gran % 0 Nucleated RBC % 0 Sodium 143 Potassium 4.5 Chloride 106 Carbon Dioxide 27.6 Anion Gap 9 BUN 69 H Creatinine 2.1 H Estim Creat Clear Calc 21.6 L eGFR 23 L BUN/Creatinine Ratio 33 H Glucose 110 H Calculated Osmolality 306 H Uric Acid 9.5 H Calcium 8.1 L Corrected Calcium 8.3 L Phosphorus 4.7 Magnesium 3.4 H Total Bilirubin 0.6 AST < 10 ALT < 7 L Alkaline Phosphatase 87 Total Protein 6.0 Albumin 3.7 Globulin 2.3 Albumin/Globulin Ratio 1.6 Ur Random Microalbumin 11 U Random Total Protein 11 U Creat (Microalbumin) 19 L Microalb/Creat Ratio 58 H Random Vancomycin 9.9 White count of 7100, creatinine better at 2.1 Assessment & Plan Assessment Additional comments: Acute uricemia with left long finger dactylitis Plan Will leave it up to family physician and medical staff as far as acute and chronic treatment of her gout. The other reason for her elevated hyperuricemia might be her acute renal failure which seems to be responding. Will see patient tomorrow Documentation for date of: 12/22/24
[2024-12-23] VITALS (9 sets, daily range): BP systolic 120–167; BP diastolic 53–96; PULSE 66–113; RESP 16–18; TEMP 36.2–36.6; O2SAT 92–96; BMI 15.0
[2024-12-23 05:54] LABS: Basophils % (Auto) 0 % (0-2.5); Eosinophils % (Auto) 0 % (0-10); Hematocrit 30.1 % (36.0-46.0); Hemoglobin 9.7 g/dL (12.0-16.0); Immature Granulocytes % (Auto) 0 % (0-0); Immature Granulocytes Auto 0.02 Thou/mm3 (0.00-0.00); Lymphocytes # (Auto) 1.2 Thou/mm3 (1.0-4.8); Lymphocytes % (Auto) 18 % (10-50); Mean Corpuscular HGB Conc 32.2 g/dl (31.0-37.0); Mean Corpuscular Hemoglobin 29.3 pg (25.0-35.0); Mean Corpuscular Volume 91 fL (80-100); Monocytes # (Auto) 0.4 Thou/mm3 (0.0-0.8); Monocytes % (Auto) 6 % (0-12); Neutrophils # (Auto) 5.1 Thou/mm3 (1.8-7.7); Neutrophils % (Auto) 75 % (37-80); Nucleated Red Blood Cell % 0 /100 WBC (0); Platelet Count 249 Thou/mm3 (140-440); RDW Standard Deviation 47.2 fL (36.4-46.3); Red Blood Count 3.31 Miln/mm3 (4.00-5.20); White Blood Count 6.8 Thou/mm3 (3.6-11.0)
[2024-12-23 06:43] LABS: Alanine Aminotransferase < 7 U/L (10-49); Albumin, Serum 4.2 gm/dL (3.4-4.8); Albumin/Globulin Ratio 1.8 (1.2-2.2); Alkaline Phosphatase 91 U/L (46-116); Anion Gap 11 (7-16); Aspartate Amino Transferase 11 U/L (0-34); BUN/Creatinine Ratio 34 Ratio (12-20); Bilirubin,Total 0.7 mg/dL (0.3-1.2); Blood Urea Nitrogen 72 mg/dL (9-23); Chloride 104 mMol/L (98-107); Creatinine (Component) 2.1 mg/dL (0.6-1.3); Estimated Creatinine Clearance 21.1 mL/min (>60); Globulin 2.3 gm/dL (2.3-3.5); Glucose 189 mg/dL (74-106); Magnesium 3.4 mg/dL (1.6-2.6); Osmolality,Calculated 311 (275-295); Phosphorous 5.1 mg/dL (2.4-5.1); Potassium 4.3 mMol/L (3.4-5.1); Sodium 143 mMol/L (136-145); Total Protein 6.5 gm/dL (5.7-8.2); eGFR 23 See Note
[2024-12-23] MEDS: INSULIN LISPRO (AdmeLOG) 1 UNIT/0.01 ML UNIT SC ×2 (07:47→11:25)
--- NOTE | 2024-12-23 08:42 | ESPR_ITS ---
Documentation for date of: 12/23/24 Subjective Subjective Interval history: Mr. Carter is a 79-year-old lady with extensive past medical history of hypertension, diabetes type 2, peripheral vascular disease with right metatarsal amputation, dyslipidemia, carotid ASO, diabetic neuropathy, congestive cardiac failure, lower extremity edema-mostly wheelchair-bound, CKD stage IIIb under my care for many years presented to the emergency department with significant pain in the left hand especially in the middle finger going on for the last few days. She reported fall but no loss of consciousness. Pain was so bad that she presented herself to the ER. In the emergency department Hemoglobin was 9.8, sedimentation rate 34, BUN 74, creatinine 2.7 with a GFR of 17, blood sugar 211, calcium 8.2, x-ray showed osteopenia with early cortical erosions. Admitted to the hospitalist team. Renal consultation requested for CHANELL on CKD. Home medications included Lipitor, benazepril/hydrochlorothiazide, bumetanide, diltiazem, glipizide, hydralazine, insulin 12/21/2024 patient currently seen in medical floor. Blood pressure 172/84, heart rate 77. Hemoglobin 8.7. Creatinine 2.4 today, A1c 6.7, uric acid 9.6, calcium 8.3, phosphorus 5.3, magnesium 3.7, iron saturation 11, ferritin 31, LFTs normal, albumin 3.8, LDL 55, B12 537, TSH normal. 12/22/24: Patient is currently seen in [facility]. There were no major overnight events the patient was feeling okay this morning. Patient's electrolytes were within normal limits and her BUN is 69 with a creatinine of 2.1 which is improved compared to yesterday. Patient is pending further workup for her left third digit for possible gout. Uric acid is elevated at 9.5. Recommended echocardiogram to rule out possible cardiorenal syndrome. Patient's less edematous today. Continue Bumex 1 mg IV daily. 12/23/24: Patient seen and examined at bedside. No major overnight events. Patient resting comfortably, reports feeling subjectively well. Electrolytes WNL, BUN slightly increased to 72, creatinine and EGFR unchanged. Patient had 1.5 L urinary output. Renal ultrasound showed bilateral cortical thinning and parenchymal scar formation consistent with CKD. UACR 58, likely secondary to diabetes. Patient overall was doing well, likely can be discharged today. Exam Vital Signs Temp Pulse Resp BP Pulse Ox O2 Del Method 97.6 F 82 18 140/53 H 96 Room Air 12/23/24 07:19 12/23/24 07:19 12/23/24 07:19 12/23/24 07:19 12/23/24 07:19 12/23/24 07:19 Narrative Exam GENERAL APPEARANCE: Elderly lady-patient seems to be comfortable, adequately hydrated and nourished. HEENT: EOMI, PERRLA NECK: Neck supple, no JVD or bruit CARDIOVASCULAR: Heart regular,2/6 murmurs LUNGS/CHEST: Chest clear to auscultation. No rales, rhonchi, wheezing ABDOMEN: Soft, nontender, nondistended. No masses. Normal bowel sounds. EXTREMITIES: Trace edema in the lower extremities SKIN: Skin exam normal without any rashes MUSCULOSKELETAL: Left hand is swollen especially the left third digit, improved from yesterday NEUROLOGICAL : No neurological deficits-able to move all extremities, awake and alert Objective Labs 12/23/24 04:40 12/23/24 04:40 Labs: Laboratory Results - last 24 hr 12/22/24 12/23/24 12:50 04:40 WBC 6.8 RBC 3.31 L Hgb 9.7 L Hct 30.1 L MCV 91 MCH 29.3 MCHC 32.2 RDW Std Deviation 47.2 H Plt Count 249 Neut % (Auto) 75 Lymph % (Auto) 18 [place] % (Auto) 6 Eos % (Auto) 0 Baso % (Auto) 0 Neut # (Auto) 5.1 Lymph # (Auto) 1.2 [place] # (Auto) 0.4 Eos # (Auto) 0.0 Baso # (Auto) 0.0 Immature Gran # (Auto) 0.02 H Absolute Nucleated RBC 0.00 Immature Gran % 0 Nucleated RBC % 0 Sodium 143 Potassium 4.3 Chloride 104 Carbon Dioxide 28.0 Anion Gap 11 BUN 72 H Creatinine 2.1 H Estim Creat Clear Calc 21.1 L eGFR 23 L BUN/Creatinine Ratio 34 H Glucose 189 H D Calculated Osmolality 311 H Calcium 9.0 Corrected Calcium 9.0 Phosphorus 5.1 Magnesium 3.4 H Total Bilirubin 0.7 AST 11 ALT < 7 L Alkaline Phosphatase 91 Total Protein 6.5 Albumin 4.2 D Globulin 2.3 Albumin/Globulin Ratio 1.8 Ur Random Microalbumin 11 U Random Total Protein 11 U Creat (Microalbumin) 19 L Microalb/Creat Ratio 58 H Quality Measures Quality Measures VTE prophylaxis Advance care planning discussed with:: patient Assessment & Plan Assessment Current Active Medications: Generic Name Dose Route Start Last Admin Trade Name Freq PRN Reason Stop Dose Admin Acetaminophen 650 mg 12/20/24 23:50 Acetaminophen 325 Mg Tablet PO 01/19/25 23:49 Q6H PRN Fever >100.5 Acetaminophen 650 mg 12/20/24 23:50 Acetaminophen 325 Mg Tablet PO 01/19/25 23:49 Q6H PRN PAIN SCALE 1-3 (mild Hydrocodone Bitart/Acetaminophen 1 tab 12/20/24 23:50 12/22/24 08:06 Hydrocodone/Apap 5/325 Tablet PO 12/25/24 23:49 1 tab Q4HR PRN Administration PAIN SCALE 4-6 (Moderate Atorvastatin Calcium 40 mg 12/21/24 21:00 12/22/24 20:41 Atorvastatin Calcium 20 Mg Tablet PO 01/20/25 20:59 40 mg HS JANAE Administration Bumetanide 1 mg 12/21/24 09:00 12/22/24 08:05 Bumetanide Inj 0.25 Mg/Ml Vial 4 Ml IVP 01/20/25 08:59 1 mg QDAY JANAE Administration Calcium Carbonate 600 mg 12/21/24 09:00 12/22/24 08:06 Calcium Carbonate 600 Mg Tablet PO 01/20/25 08:59 600 mg QDAY JANAE Administration Dextrose 25 ml 12/21/24 00:03 12/21/24 06:17 Dextrose 50%-Water Inj 50 Ml Syringe IV 01/20/25 00:02 25 ml Q15MIN PRN Administration BG 50-70 responsive npo pt Dextrose 50 ml 12/21/24 00:03 Dextrose 50%-Water Inj 50 Ml Syringe IV 01/20/25 00:02 Q15MIN PRN BG <50 OR BG <70 & pt unresponsive Diltiazem HCl 60 mg 12/21/24 09:00 12/22/24 20:41 Diltiazem 30 Mg Tablet PO 01/20/25 08:59 60 mg BID JANAE Administration Protocol Ferrous Sulfate 325 mg 12/21/24 17:45 12/21/24 18:21 Ferrous Sulf 325 Mg Tablet PO 01/20/25 17:44 Not Given QOD JANAE Glucagon 1 mg 12/21/24 00:03 Glucagon Inj 1 Mg Vial IM Q15MIN PRN BG <70, and no IV access Hydralazine HCl 10 mg 12/21/24 18:13 Hydralazine Inj 20 Mg/Ml Vial IV 01/20/25 18:12 Q4HR PRN Hypertension Hydromorphone HCl 0.5 mg 12/21/24 00:02 Hydromorphone Inj 2 Mg/Ml Vial IVP 12/25/24 23:49 Q4H PRN PAIN SCALE 7-10 (Severe Insulin Glargine 20 unit 12/22/24 21:00 12/22/24 20:40 Insulin Glargine (Lantus) 5 Unit/0.05 Ml (Per 5 Units) SC 01/21/25 20:59 20 unit HS JANAE Administration Insulin Human Lispro 0 unit 12/22/24 07:30 12/23/24 07:47 Insulin Lispro (Admelog) 1 Unit/0.01 Ml Unit SC 01/21/25 07:29 1 unit ACHS JANAE Administration Protocol Losartan Potassium 25 mg 12/22/24 16:00 12/22/24 16:57 Losartan Potassium 25 Mg Tablet PO 01/21/25 15:59 25 mg QDAY JANAE Administration Ondansetron HCl 4 mg 12/20/24 23:50 Ondansetron Inj 2 Mg/Ml Inj 2 Ml IV 01/19/25 23:49 Q6H PRN NAUSEA OR VOMITING Protocol Prednisone 40 mg 12/22/24 09:00 12/22/24 08:06 Prednisone 20 Mg Tablet PO 12/29/24 07:42 40 mg QDAY JANAE Administration Pregabalin 25 mg 12/21/24 00:15 12/22/24 20:41 Pregabalin 25 Mg Capsule PO 01/20/25 00:14 25 mg HS JANAE Administration Sennosides 1 tab 12/22/24 10:30 12/22/24 11:41 Senna/Docusate Sod 1 Tab Tablet PO 01/21/25 10:29 1 tab QDAY JANAE Administration Protocol Plan 79-year-old lady with extensive past medical history of hypertension, diabetes type 2, peripheral vascular disease with right metatarsal amputation, dyslipidemia, carotid ASO, diabetic neuropathy, congestive cardiac failure, lower extremity edema-mostly wheelchair-bound, CKD stage IIIb admitted for CHANELL on CKD as well as possible osteomyelitis of the left third digit versus acute gout. #Acute on chronic renal failure: Acute on chronic renal failure secondary to prerenal azotemia. Patient clinically looks rather hypervolemic with significant edema. Will need to rule out congestive heart failure. Rule out diabetic nephropathy with proteinuria. Check urine protein/creatinine and renal ultrasound. Strict I&O's ordered. Agree with diuretics. Agree with steroids for suspected gout as patient's renal function improves Renal ultrasound showed bilateral cortical thinning and parenchymal scar formation consistent with CKD. UACR 58, likely secondary to diabetes. - Recommend echocardiogram - Strict ARIN's - Continue with Bumex 1 mg IV daily - Avoid nephrotoxic medications - Patient can be discharged from nephrology perspective #Hypertension: #Diabetes: #Hyperlipidemia: #Left third digit osteomyelitis versus gouty arthritis - Managed by primary team Thank you for allowing us to be part of patient's care during her time in [facility] Plan of care discussed with attending Dr. Benavides. German Phelan MD PGY?1 Attending Provider Attestation/Addendum Patient seen and examined with resident physician Dr. Clarke. Note reviewed, agree with findings and recommendations. Significant pain in the left third finger-most likely gouty arthritis Creatinine tad better with Diuretics. Renal briscoe stable for discharge. Patient has CKD stage IV.
[2024-12-23] MEDS: BUMETANIDE INJ 0.25 MG/ML VIAL 4 ML 1 MG IVP (08:54)
[2024-12-23] MEDS: DILTIAZEM 30 MG TABLET 60 MG PO (09:56)
[2024-12-23] MEDS: FERROUS SULF 325 MG TABLET PO (09:57)
[2024-12-23] MEDS: CALCIUM CARBONATE 600 MG TABLET PO (09:58)
[2024-12-23] MEDS: SENNA/DOCUSATE SOD 1 TAB TABLET PO (09:58)
[2024-12-23] MEDS: LOSARTAN POTASSIUM 25 MG TABLET PO (09:58)
[2024-12-23] MEDS: predniSONE 20 MG TABLET 40 MG PO (09:59)
[2024-12-23] MEDS: COLCHICINE 0.6 MG TABLET 0.3 MG PO (11:21)
[2024-12-23] MEDS: HYDROcodone/APAP 5/325 TABLET 1 TAB PO (11:21)
--- NOTE | 2024-12-23 13:09 | ESDS_ITS ---
<Statement entered by Demi Spencer DO - 12/24/24 12:01> I, Demi Spencer DO, attest that I was physically present for the frank portions of the service and evaluated the patient with the resident and I reviewed and discussed the case with the resident and agree with the resident's findings and plans of care as documented above Planned Discharge Date 12/23/24 DS: Providers Provider Date of admission: 12/20/24 22:52 Primary care physician: Physician No Primary/Family Admitting Provider: Lora South MD Attending Provider on Admission: Demi Spencer DO Consults: 12/21/24 00:06 Consult to Infectious Diseases Routine Comment: Lt distal aspect proximal phalanx 3rd digit osteo Consulting Provider: Jarrod Calzada 12/21/24 01:09 Consult to Nephrology Routine Comment: CHANELL on CKD IV Consulting Provider: Kristine Benavides 12/21/24 09:18 Consult to Orthopedic Urgent Comment: Hand cellulitis , possible osteomyelitis Consulting Provider: Chuck De León 12/21/24 21:30 Consult to Infectious Diseases Routine Comment: Consulting Provider: Jarrod Calzada Instructions: Patient has 2-week history of increasing pain swelling left long finger. Patient has dactylitis time not sure what it is thank you very much for your input 12/22/24 10:32 Referral Physical Therapy Routine Comment: Physician Instructions: Instructions: limited mobility Attending Provider on DC: William Greco MD Discharging Provider: William Greco MD DS: Diagnosis Problem List Completed Was Problem List Reviewed/Reconciled?: Yes Hospital Course Hospital Course Hospital course: 79-year-old female with past medical history of hypertension, type 2 diabetes mellitus, peripheral vascular disease, hyperlipidemia, carotid stenosis, neuropathy, chronic bilateral lower limb edema, history of right BKA presenting to the ED on 12/20 with left third phalange swelling. In the ED, patient was hypertensive with blood pressure 174/89, pertinent findings included ESR of 34, creatinine 2.7, EGFR of 17. X-ray of the left hand showed prominent soft tissue swelling of the dorsum of the hand surrounding the third digit, severe ost eopenia, soft tissue vascular calcification and early cortical erosions in the distal aspect of the proximal phalanx but no acute fracture. Initially suspicion was that the patient was having osteomyelitis secondary to diabetes; however, upon further examination and MRI findings patient likely has gouty arthritis. During hospitalization, infectious disease and orthopedic surgery was consulted for the recommendations and they both agreed that the patient likely has gout versus osteomyelitis. Patient also had CHANELL on CKD stage IIIb and she follows local supervisor type disk quality control. Nephrology recommended regimen for the gout which the patient will complete and follow-up outpatient. Recommendations were that the patient likely developed gout secondary to the hydrochlorothiazide; moreover, as a result patient's blood pressure medications were changed to losartan. Patient will be discharged, medically stable with the following strict instructions. Please take colchicine 0.3mg by mouth if your finger pain does not improve in the next three days Please take Losartan 25mg by mouth once a day for high blood pressure; stop taking benazepril-HCTZ Please take Ferrous sulfate (iron supplement) for iron deficiency Please take Eliquis 2.5mg by mouth twice a day (reduced dose due to age and kidney function) Stop taking meloxicam and glipizide Continue all other home medications as prescribed Follow-up with Dr. Benavides within 1-2 weeks after discharge If your symptoms worsen or if you develop new chest pain, shortness of breath, change in the color of your finger, fever or chills - please come back to the ED immediately. Hospital Diagnosis: #Acute on chronic renal failure: #Acute gout flare of left 3rd digit #Hypertension: #Diabetes #Hyperlipidemia William Greco, PGY-1 Status at Discharge Overall status at discharge: patient is progressing back to baseline Time Spent with Patient Time attestation: Total time spent providing and/or coordinating discharge services: 45 minutes Time spent: Greater than 30 minutes Exam Vital Signs Temp Pulse Resp BP Pulse Ox O2 Del Method 97.1 F 89 16 167/74 H 95 Room Air 12/23/24 11:34 12/23/24 12:44 12/23/24 11:34 12/23/24 11:34 12/23/24 11:34 12/23/24 11:34 Narrative Exam GENERAL APPEARANCE: Elderly lady-patient seems to be comfortable, adequately hydrated and nourished. HEENT: EOMI, PERRLA NECK: Neck supple, no JVD or bruit CARDIOVASCULAR: Heart regular,2/6 murmurs LUNGS/CHEST: Chest clear to auscultation. No rales, rhonchi, wheezing ABDOMEN: Soft, nontender, nondistended. No masses. Normal bowel sounds. EXTREMITIES: Trace edema in the lower extremities SKIN: Skin exam normal without any rashes MUSCULOSKELETAL: Left hand is swollen especially the left third digit, improved from yesterday NEUROLOGICAL : No neurological deficits-able to move all extremities, awake and alert Discharge Plan Plan Patient Disposition: HOME (Self Care) Patient condition on transfer: Stable Care Plan Goals: Please take colchicine 0.3mg by mouth if your finger pain does not improve in the next three days Please take Losartan 25mg by mouth once a day for high blood pressure; stop taking benazepril-HCTZ Please take Ferrous sulfate (iron supplement) for iron deficiency Please take Eliquis 2.5mg by mouth twice a day (reduced dose due to age and kidney function) Stop taking meloxicam and glipizide Continue all other home medications as prescribed Follow-up with Dr. Benavides within 1-2 weeks after discharge If your symptoms worsen or if you develop new chest pain, shortness of breath, change in the color of your finger, fever or chills - please come back to the ED immediately. [place] colchicina 0.3 mg por v?a oral si el dolor en el dedo no mejora en los pr?ximos reina d?as. [place] losart?n 25 mg por v?a oral blayne vez al d?a para la hipertensi?n arterial; deje de rosalina benazepril-HCTZ. [place] sulfato ferroso (suplemento de shea) para la deficiencia de shea. [place] Eliquis 2,5 mg por v?a oral dos veces al d?a (dosis reducida debido a la edad y la funci?n renal). Deje de rosalina meloxicam y glipizida. Contin?e con todos los dem?s medicamentos que rose en casa seg?n lo prescrito. Consulte con el Dr. Benavides dentro de 1 a 2 semanas despu?s del gladys. Si mai s?ntomas empeoran o si presenta nuevo dolor en el pecho, dificultad para respirar, cambio de color en el dedo, fiebre o escalofr?os, regrese a urgencias de inmediato. Prescriptions/Referrals Prescriptions/Med Rec: New ferrous sulfate 325 mg (65 mg iron) Tablet,Delayed Release (Dr/Ec) 325 mg PO QOD 30 Days Qty: 15 0RF losartan 25 mg Tablet 25 mg PO QDAY 30 Days Qty: 30 0RF colchicine 0.6 mg tablet 0.3 mg PO QDAY Qty: 1 0RF Rx Instructions: Only to be taken if patient still has gout flare within the next three days. Eliquis 2.5 mg tablet 2.5 mg PO BID 30 Days Qty: 60 0RF Continued bumetanide 1 mg Tablet 1 mg PO QDAY Rx Instructions: TAKE ONE TABLET DAILY Tresiba FlexTouch U-200 200 unit/mL (3 mL) Insulin Pen 38 unit SUBCUT QAM hydralazine 50 mg Tablet 50 mg PO TID pregabalin 25 mg capsule 25 mg PO DAILY Patient Comments: TAKE ONE CAPSULE PO DAILY. MAX DAILY DOSE 1 CAPSULE aspirin 81 mg tablet,delayed release (DR/EC) 81 mg PO DAILY Patient Comments: TOME 1 TABLETA POR VIA ORAL TODOS LOS SOMMER Rx Instructions: TAKE ONE TABLET DAILY atorvastatin 40 mg tablet 40 mg PO HS Rx Instructions: TAKE ONE TABLET AT BEDTIME diltiazem HCl 60 mg Tablet 60 mg PO BID Rx Instructions: TAKE ONE TABLET TWICE A DAY diclofenac sodium [Arthritis Pain (diclofenac)] 1 % gel 2 g topical QID PRN (Reason: pain) Qty: 100 0RF Rx Instructions: apply to single elbow, wrist or hand; for hand includes palm/fingers/back of hand lidocaine [AsperFlex (lidocaine)] 4 % adhesive patch,medicated 1 patch topical Q24H PRN (Reason: pain) Qty: 30 0RF Rx Instructions: may leave on for up to 12 hrs Discontinued glipizide 10 mg Tablet 10 mg PO BID benazepril-hydrochlorothiazide 20-12.5 mg tablet 1 tab PO BID Patient Comments: TAKE ONE TABLET TWICE A DAAY glipizide 5 mg tablet 5 mg PO BID Rx Instructions: TAKE ONE TABLET TWICE A DAY Eliquis 5 mg tablet 5 mg PO BID Rx Instructions: TAKE ONE TABLET TWICE A DAY meloxicam 7.5 mg tablet 7.5 mg PO QDAY Qty: 10 0RF Referrals: No Primary/Family,Physician [Primary Care Provider] - Kristine Benavides MD [Physician] - Patient/Caregiver Discharge Instructions Education Materials: What Is Gout?, Treating Gout Attacks, CKD Dc Print Language: Indonesian Stand Alone Forms: [facility] Award Info., Patient Portal Info Letter Discharge Order Discharge Orders: Discharge (Routine); Ordered 12/23/24 Ordered By: William Greco Quality Discharge Quality Measures VTE prophylaxis
--- NOTE | 2024-12-23 14:42 | PC.NURSE ---
Notified MD Greco on pts current bp of 167/74-71 prior to dc. Per MD will consult with attending in regards to trending bp prior to discharging pt.
--- NOTE | 2024-12-23 14:50 | PC.NURSE ---
Per MD Greco verified with attending and ok to dc pt with most recent bp.
[2024-12-30 06:55] LABS: Vitamin D,1,25 (OH)2,Total <8 pg/mL (18-72); Vitamin D2, 1,25 (OH)2 <8 pg/mL; Vitamin D3, 1,25 (OH)2 <8 pg/mL
== END 2024-12-23 15:23 | disposition home or self-care (01) | DRG 554 ==
LOC: SERX 22:49 → SERHOLD 23:12 → S3SX 12-21 01:16
PROVIDERS: Orthopaedic Surgery; Physician Assistant; Student in an Organized Health Care Education/Training Program; Admitting Provider Student in an Organized Health Care Education/Training Program; Emergency Provider Emergency Medicine; Visit Provider Internal Medicine
DX: M10.242 Drug-induced gout, left hand (principal); I13.0 Hypertensive heart and chronic kidney disease with heart failure and stage 1 through stage 4 chronic kidney disease, or unspecified chronic kidney disease; L03.114 Cellulitis of left upper limb; M86.142 Other acute osteomyelitis, left hand; N17.9 Acute kidney failure, unspecified; N18.4 Chronic kidney disease, stage 4 (severe); E11.69 Type 2 diabetes mellitus with other specified complication; E78.5 Hyperlipidemia, unspecified; R29.6 Repeated falls; E11.22 Type 2 diabetes mellitus with diabetic chronic kidney disease; E11.65 Type 2 diabetes mellitus with hyperglycemia; I48.91 Unspecified atrial fibrillation; E11.51 Type 2 diabetes mellitus with diabetic peripheral angiopathy without gangrene; D63.1 Anemia in chronic kidney disease; E11.42 Type 2 diabetes mellitus with diabetic polyneuropathy; E83.41 Hypermagnesemia; E83.51 Hypocalcemia; I50.9 Heart failure, unspecified; M10.9 Gout, unspecified; E83.39 Other disorders of phosphorus metabolism; Z79.4 Long term (current) use of insulin; I27.20 Pulmonary hypertension, unspecified; Z79.01 Long term (current) use of anticoagulants; Z79.899 Other long term (current) drug therapy; Z89.511 Acquired absence of right leg below knee; Z99.3 Dependence on wheelchair; T50.2X5A Adverse effect of carbonic-anhydrase inhibitors, benzothiadiazides and other diuretics, initial encounter; M85.80 Other specified disorders of bone density and structure, unspecified site
CPT/HCPCS: 36415; 73130; 73218; 76770; 80053; 80061; 80202; 82043; 82570; 82607; 82652; 82728; 82746; 83036; 83540; 83550; 83735; 84100; 84145; 84156; 84443; 84550; 85025; 85046; 85652; 86140; 87040; 93225; 96365; 99285; J0696; J1815; J3370; J3490; J7030; J7512; A9270

== ENCOUNTER → 2024-12-30 | Outpatient (CLI) | payer OTHER, MEDICAID, SELFPAY ==
[2024-12-30 10:20] LABS: Basophils # (Auto) 0.1 Thou/mm3 (0.0-0.2); Basophils % (Auto) 1 % (0-2.5); Eosinophils # (Auto) 0.2 Thou/mm3 (0.0-0.5); Eosinophils % (Auto) 2 % (0-10); Hematocrit 31.1 % (36.0-46.0); Hemoglobin 9.7 g/dL (12.0-16.0); Immature Granulocytes % (Auto) 0 % (0-0); Immature Granulocytes Auto 0.03 Thou/mm3 (0.00-0.00); Lymphocytes # (Auto) 2.4 Thou/mm3 (1.0-4.8); Lymphocytes % (Auto) 30 % (10-50); Mean Corpuscular HGB Conc 31.2 g/dl (31.0-37.0); Mean Corpuscular Volume 93 fL (80-100); Monocytes # (Auto) 0.5 Thou/mm3 (0.0-0.8); Monocytes % (Auto) 6 % (0-12); Neutrophils # (Auto) 4.8 Thou/mm3 (1.8-7.7); Neutrophils % (Auto) 61 % (37-80); Nucleated Red Blood Cell % 0 /100 WBC (0); Platelet Count 231 Thou/mm3 (140-440); RDW Standard Deviation 50.8 fL (36.4-46.3); Red Blood Count 3.35 Miln/mm3 (4.00-5.20); White Blood Count 7.9 Thou/mm3 (3.6-11.0)
[2024-12-30 10:36] LABS: Glucose Estimated Average 148 mg/dL (80-131); Hemoglobin A1C 6.8 % Hgb (4.8-6.0)
[2024-12-30 10:59] LABS: Parathyroid Hormone Intact 198.1 pg/ml (18.5-88.0)
[2024-12-30 11:03] LABS: Alanine Aminotransferase 20 U/L (10-49); Albumin, Serum 4.2 gm/dL (3.4-4.8); Albumin/Globulin Ratio 1.9 (1.2-2.2); Alkaline Phosphatase 85 U/L (46-116); Anion Gap 9 (7-16); Aspartate Amino Transferase 13 U/L (0-34); BUN/Creatinine Ratio 33 Ratio (12-20); Bilirubin,Total 0.7 mg/dL (0.3-1.2); Blood Urea Nitrogen 62 mg/dL (9-23); Calcium 8.2 mg/dL (8.3-10.6); Calcium (Corrected) 8.2 mg/dL (8.5-10.1); Carbon Dioxide 31.3 mMol/L (20.0-31.0); Cardiac Risk Estimate 2.7 RATIO (3.7-5.6); Chloride 107 mMol/L (98-107); Cholesterol 108 mg/dL (132-200); Creatinine (Component) 1.9 mg/dL (0.6-1.3); Globulin 2.2 gm/dL (2.3-3.5); Glucose 116 mg/dL (74-106); HDL Cholesterol 40 mg/dL (40-60); LDL Cholesterol,Calculated 49 mg/dL (0-130); Osmolality,Calculated 311 (275-295); Potassium 4.4 mMol/L (3.4-5.1); Sodium 147 mMol/L (136-145); Thyroid Stimulating Hormone 1.69 uIU/mL (0.55-4.78); Total Protein 6.4 gm/dL (5.7-8.2); Triglycerides 95 mg/dL (30-150); eGFR 26 See Note
[2024-12-30 11:40] LABS: Collection Type, Urine Clean Catch
[2024-12-30 12:14] LABS: Bilirubin,Urine Negative (Negative); Blood,Urine Negative (Negative); Clarity,Urine Clear (Clear/Hazy); Color,Urine Lt-Yellow (Lt Yel-Yel); Glucose, Urine 4+ (Negative); Ketones,Urine Negative (Negative); Leukocyte Esterase,Urine Negative (Negative); Nitrite,Urine Negative (Negative); PH,Urine 6.5 (5.0-7.0); Protein,Urine Trace (Neg - Trace); RBC,Urine 1 /hpf (0-3); Specific Gravity,Urine 1.014 (1.001-1.035); Squamous Epithelial Cell,Urine 3 /hpf (0-5); Urobilinogen,Urine Negative mg/dL (0.0-1.0); WBC,Urine 1 /hpf (0-5)
[2024-12-30 12:27] LABS: Creatinine MALB Rnd Ur 65 mg/dL (30-125); Microalbumin Creat Ratio 58 mg/gCrea (<30); Microalbumin, Random Urine 38 mg/L (0-300)
== END | disposition home or self-care (01) ==
PROVIDERS: PCP Internal Medicine; Referring Provider Internal Medicine; Visit Provider Internal Medicine
DX: I12.9 Hypertensive chronic kidney disease with stage 1 through stage 4 chronic kidney disease, or unspecified chronic kidney disease (principal); E11.22 Type 2 diabetes mellitus with diabetic chronic kidney disease; N18.4 Chronic kidney disease, stage 4 (severe); E78.5 Hyperlipidemia, unspecified
CPT/HCPCS: 36415; 80053; 80061; 81001; 82043; 82570; 83036; 83970; 84443; 85025

== ENCOUNTER → 2025-02-02 | Outpatient (CLI) | payer OTHER, MEDICAID, SELFPAY ==
[2025-02-02 08:19] LABS: Basophils # (Auto) 0.1 Thou/mm3 (0.0-0.2); Basophils % (Auto) 1 % (0-2.5); Eosinophils # (Auto) 0.1 Thou/mm3 (0.0-0.5); Eosinophils % (Auto) 3 % (0-10); Hematocrit 33.9 % (36.0-46.0); Hemoglobin 10.8 g/dL (12.0-16.0); Immature Granulocytes % (Auto) 0 % (0-0); Immature Granulocytes Auto 0.01 Thou/mm3 (0.00-0.00); Lymphocytes # (Auto) 2.4 Thou/mm3 (1.0-4.8); Lymphocytes % (Auto) 42 % (10-50); Mean Corpuscular HGB Conc 31.9 g/dl (31.0-37.0); Mean Corpuscular Volume 91 fL (80-100); Monocytes # (Auto) 0.5 Thou/mm3 (0.0-0.8); Monocytes % (Auto) 9 % (0-12); Neutrophils # (Auto) 2.6 Thou/mm3 (1.8-7.7); Neutrophils % (Auto) 45 % (37-80); Nucleated Red Blood Cell % 0 /100 WBC (0); Platelet Count 233 Thou/mm3 (140-440); RDW Standard Deviation 49.4 fL (36.4-46.3); Red Blood Count 3.73 Miln/mm3 (4.00-5.20); White Blood Count 5.7 Thou/mm3 (3.6-11.0)
[2025-02-02 08:25] LABS: Glucose Estimated Average 143 mg/dL (80-131); Hemoglobin A1C 6.6 % Hgb (4.8-6.0)
[2025-02-02 08:43] LABS: Alanine Aminotransferase 9 U/L (10-49); Albumin, Serum 4.4 gm/dL (3.4-4.8); Albumin/Globulin Ratio 2.2 (1.2-2.2); Alkaline Phosphatase 91 U/L (46-116); Anion Gap 12 (7-16); BUN/Creatinine Ratio 19 Ratio (12-20); Bilirubin,Total 0.8 mg/dL (0.3-1.2); Blood Urea Nitrogen 31 mg/dL (9-23); Carbon Dioxide 31.2 mMol/L (20.0-31.0); Cardiac Risk Estimate 2.5 RATIO (3.7-5.6); Chloride 108 mMol/L (98-107); Cholesterol 116 mg/dL (132-200); Creatinine (Component) 1.6 mg/dL (0.6-1.3); Glucose 93 mg/dL (74-106); HDL Cholesterol 47 mg/dL (40-60); LDL Cholesterol,Calculated 45 mg/dL (0-130); Osmolality,Calculated 306 (275-295); Sodium 151 mMol/L (136-145); Total Protein 6.4 gm/dL (5.7-8.2); Triglycerides 119 mg/dL (30-150); eGFR 32 See Note
== END | disposition home or self-care (01) ==
LOC: COPL 07:39
PROVIDERS: PCP Internal Medicine; Referring Provider Nurse Practitioner Family; Visit Provider Nurse Practitioner Family
DX: E11.65 Type 2 diabetes mellitus with hyperglycemia (principal)
CPT/HCPCS: 36415; 80053; 80061; 83036; 85025

== ENCOUNTER → 2025-02-28 | Outpatient (CLI) | payer OTHER, MEDICAID, SELFPAY ==
[2025-02-28 10:49] LABS: Albumin, Serum 4.2 gm/dL (3.4-4.8); Anion Gap 13 (7-16); BUN/Creatinine Ratio 20 Ratio (12-20); Blood Urea Nitrogen 32 mg/dL (9-23); Calcium 8.8 mg/dL (8.3-10.6); Calcium (Corrected) 8.8 mg/dL (8.5-10.1); Carbon Dioxide 29.6 mMol/L (20.0-31.0); Chloride 104 mMol/L (98-107); Creatinine (Component) 1.6 mg/dL (0.6-1.3); Glucose 118 mg/dL (74-106); Osmolality,Calculated 300 (275-295); Phosphorous 3.8 mg/dL (2.4-5.1); Potassium 4.1 mMol/L (3.4-5.1); Sodium 147 mMol/L (136-145); eGFR 32 See Note
== END | disposition home or self-care (01) ==
PROVIDERS: PCP Internal Medicine; Referring Provider Internal Medicine; Visit Provider Internal Medicine
DX: N18.4 Chronic kidney disease, stage 4 (severe) (principal)
CPT/HCPCS: 36415; 80069

== ENCOUNTER 2025-03-15 18:27 | Emergency (ER) | payer OTHER, MEDICAID, SELFPAY ==
[2025-03-15 19:10] VITALS: BP 175/72; PULSE 83; RESP 18; TEMP 37.2; O2SAT 96
--- NOTE | 2025-03-15 20:06 | EDNOTE_ITS ---
<Statement entered by Radha Judd MD - 03/16/25 04:49> As co-signing physician, I was present and available for consult prn. I concur with the plan and care as documented by the midlevel provider. ED Ear RME/HPI General Chief complaint: Ear Stated complaint: Bleeding from right ear Time Seen by Provider: 03/15/25 19:28 Arrival date/time: 03/15/25 18:27 80F with history of HTN and DM presents to ED with R ear bleeding after she was cleaning it with some metal object. Limitations: no limitations Related Data Home Medications ?Medication ?Instructions ?Recorded ?Confirmed hydralazine 50 mg tablet 50 mg PO TID 11/30/21 bumetanide 1 mg tablet 1 mg PO QDAY 12/24/21 insulin degludec 200 unit/mL (3 38 unit subcut QAM 10/1612/24/21 mL) subcutaneous pen (Tresiba FlexTouch U-200 insulin) aspirin 81 mg tablet,delayed 81 mg PO DAILY 12/22/24 0 12/22/24 release atorvastatin 40 mg tablet 40 mg PO HS 12/22/24 5 diltiazem HCl 60 mg tablet 60 mg PO BID 12/22/2412/22 pregabalin 25 mg capsule 25 mg PO DAILY 12/22/2411/25 Previous Rx's ?Medication ?Instructions ?Recorded diclofenac sodium 1 % topical gel 2 g topical QID PRN pain #100 grams 02/29/24 (Arthritis Pain (diclofenac)) lidocaine 4 % topical patch 1 patch topical Q24H PRN p ain #30 02/29/24 (AsperFlex (lidocaine)) ea colchicine 0.6 mg tablet 0.3 mg (1/2 x 0.6 mg) PO QDA Y #1 12/23/24 tab ofloxacin 0.3 % ear drops 10 drp otic (ear) QDAY 10 da ys #10 03/15/25 mL Allergies Allergy/AdvReac Type Severity Reaction Status Date / Time No Known Allergies Allergy Verified 03/15/25 18:30 Review of Systems Review of Systems Systems Reviewed: All systems reviewed, normal except as documented Constitutional Constitutional: Reports system reviewed and no additional complaints, except as documented, Denies fever(s) and Denies headache(s) ENT Ears, Nose, Mouth, and Throat: Reports as per HPI, Denies disequilibrium, Reports otalgia and Denies headache(s) Cardiovascular Cardiovascular: Reports system reviewed and no additional complaints, except as documented, Denies chest pain and Denies dyspnea Respiratory Respiratory: Reports system reviewed and no additional complaints, except as do cumented, Denies cough and Denies dyspnea Gastrointestinal Gastrointestinal: Reports system reviewed and no additional complaints, except as documented, Denies abdominal pain, Denies nausea and Denies vomiting Neurologic Neurologic: Reports system reviewed and no additional complaints, except as documented, Denies confusion, Denies disequilibrium and Denies headache(s) Psychiatric Psychiatric: Denies confusion Past Medical History Past Medical History NEUROLOGIC: Negative Neurological Disorders or Seizures CARDIAC: Positive Cardiac Disorders, Coronary Artery Disease, Peripheral Vascular Disease, Hypercholesterolemia and Hypertension; Negative Congestive Heart Failure RESPIRATORY: Positive Asthma; Negative Chronic Obstructive Pulmonary Disease (COPD) GASTROINTESTINAL: Negative Gastrointestinal Disorders or Hepatitis GENITOURINARY: Negative Genitourinary Disorders or Renal Disease REPRODUCTIVE: Positive Previous Pregnancies MUSCULOSKELETAL: Positive Musculoskeletal Disorders and Arthritis; Negative Carpal Tunnel Syndrome ENT: Positive Cataracts ENDOCRINE: Positive Endocrine Disorders and Diabetes Mellitus Type 2; Negative Diabetes Mellitus Type 1 or Hypothyroidism HEMATOLOGIC: Negative Blood Disorders, Anemia or Clotting Problems OTHER HISTORY: Negative Hospitalization, Autoimmune Disease, Down Syndrome, Developmental Delay, Shingles, Falls, Blood Transfusions, Anesthesia Reactions, Organ Transplant, Chemotherapy, Radiation Therapy, Hyperbaric Therapy, MRSA, VRSA, Vancomycin-Resistant Enterococci, Human Immunodeficiency Virus (HIV), Chicken Pox, Measles, Mumps, Rubella (Sami Measles), Pertussis, Clostridium Difficile or Cancer Surgical History SURGICAL: Positive Tubal Ligation; Negative Abdominal Surgery, Nephrectomy, Joint Replacement, Amputation, Open Reduction Internal Fixation, Arthroscopy, Neurologic Surgery, Brain Shunt, Mastectomy, Lumpectomy, Hysterectomy or Organ Transplant Social History SMOKING STATUS: Never smoker ED Exam General Limitations: Present no limitations General appearance: Present alert and in no apparent distress Head Head exam: Present atraumatic Eye Eye exam: Present normal appearance, PERRL and EOMI ENT ENT exam: Present normal oropharynx and mucous membranes moist Expanded ENT Exam TM/Canal exam: Left TM: canal discharge (bleeding) Neck Neck exam: Present normal inspection, full ROM and trachea midline Chest Chest inspection: Present normal inspection and symmetric chest wall rise Respiratory Respiratory exam: Present normal lung sounds bilaterally Cardiovascular Cardiovascular exam: Present regular rate, normal rhythm and normal heart sounds Abdominal Exam Abdominal exam: Present soft and normal bowel sounds Extremities Exam Extremities exam: Present normal inspection and full ROM Back Exam Back exam: Present normal inspection and full ROM Neurological Exam Neurological exam: Present alert, oriented X3 and CN II-XII intact Psychiatric Psychiatric exam: Present normal affect and normal mood Skin Skin exam: Present warm, dry, intact and normal color Course Quality Measures none Vital Signs Vital signs: Vital Signs Temperature 99.0 F 03/15/25 19:10 Pulse Rate 83 03/15/25 19:10 Respiratory Rate 18 03/15/25 19:10 Blood Pressure 175/72 H 03/15/25 19:10 Pulse Oximetry (%) 96 03/15/25 19:10 Oxygen Delivery Method Room Air 03/15/25 19:10 O2 at 96% on RA and WNLs Ear MDM Narrative MDM Narrative:: 80F with history of HTN and DM presents to ED with R ear bleeding after she was cleaning it with some metal object. Physical exam reveals blood in R ear canal. TM is not visualized. Patient is afebrile, calm, and alert. Meds and enrollment counselor given. Patient data External records reviewed:: [facility] previous records Clinical information provided by:: patient Social determinants that could affect healthcare access:: none Patient has the following chronic illnesses:: DM and HTN How is presenting disease/condition affected by chronic disease/condition?: uneffected by Evaluation data The following diagnostics were reviewed and interpreted by me:: other (specify) (none) Lab and/or radiology exams considered but not ordered:: not ordered Interpretation Summary: n/a Medications / Prescriptions Medications or Prescriptions considered but not ordered:: not ordered Medication administrations:: n/a Consultations Consultation(s) initiated? (list below): No Diagnosis Ear Differential Diagnosis: otitis externa, otitis media, foreign body in ear, ruptured TM, cerumen impaction and other (trauma of ear canal) Most likely diagnosis given after review of the tests above:: trauma of ear canal Admission Indicated Admission indicated?: not indicated Admission Request Was there a request for admission?: No Disposition Plan Disposition Plan: Discharge Discharge Attestation Discharge Attestation: The patient and all family members were given an opportunity to ask questions and understood the discharge instructions. Discharge instructions specifically effects, indications for sooner follow up or return to the emergency department, and the expected course of current diagnosis. Patient condition: Stable Discharge Plan Plan Patient Disposition: HOME (Self Care) Discharge Disposition comment: Stable Prescriptions/Referrals Prescriptions/Med Rec: New ofloxacin 0.3 % drops 10 drp otic (ear) QDAY 10 Days Qty: 10 0RF No Action bumetanide 1 mg Tablet 1 mg PO QDAY Rx Instructions: TAKE ONE TABLET DAILY Tresiba FlexTouch U-200 200 unit/mL (3 mL) Insulin Pen 38 unit SUBCUT QAM hydralazine 50 mg Tablet 50 mg PO TID pregabalin 25 mg capsule 25 mg PO DAILY Patient Comments: TAKE ONE CAPSULE PO DAILY. MAX DAILY DOSE 1 CAPSULE aspirin 81 mg tablet,delayed release (DR/EC) 81 mg PO DAILY Patient Comments: TOME 1 TABLETA POR VIA ORAL TODOS LOS SOMMER Rx Instructions: TAKE ONE TABLET DAILY atorvastatin 40 mg tablet 40 mg PO HS Rx Instructions: TAKE ONE TABLET AT BEDTIME diltiazem HCl 60 mg Tablet 60 mg PO BID Rx Instructions: TAKE ONE TABLET TWICE A DAY colchicine 0.6 mg tablet 0.3 mg PO QDAY Qty: 1 0RF Rx Instructions: Only to be taken if patient still has gout flare within the next three days. diclofenac sodium [Arthritis Pain (diclofenac)] 1 % gel 2 g topical QID PRN (Reason: pain) Qty: 100 0RF Rx Instructions: apply to single elbow, wrist or hand; for hand includes palm/fingers/back of hand lidocaine [AsperFlex (lidocaine)] 4 % adhesive patch,medicated 1 patch topical Q24H PRN (Reason: pain) Qty: 30 0RF Rx Instructions: may leave on for up to 12 hrs Problem List Clinical Impression: Trauma of ear canal Patient/Caregiver Discharge Instructions Education Materials: Anatomy of the Ear Additional Instructions: Please follow-up with PCP within 24-48 hours and return immediately if symptoms worsen. If problem persists, see ENT. Print Language: Zambian Stand Alone Forms: Patient Portal Info Letter PA/[employer] Supervising Physician OLIVIA/[employer] Supervising Physician: Dr. Judd
== END 2025-03-15 19:35 | disposition home or self-care (01) ==
PROVIDERS: Emergency Provider Emergency Medicine
DX: S09.91XA Unspecified injury of ear, initial encounter (principal); X58.XXXA Exposure to other specified factors, initial encounter
CPT/HCPCS: 99282

== ENCOUNTER → 2025-05-05 | Outpatient (CLI) | payer MEDICARE, MEDICAID, SELFPAY ==
--- NOTE | 2025-05-05 13:00 | XR_ITS ---
Examination: Screening digital mammography, bilateral Computer aided detection 3-D breast Tomosynthesis, bilateral Date and time of exam: May 05, 2025, 1301 hours, compared to mammograms dating to November 16, 2013 Indication: Screening Technique: Nonmagnified MLO, CC views of the breasts to been obtained, reconstructed from 3-D Tomosynthesis images. R2 computer aided detection program utilized for evaluation of suspicious masses and/or abnormal calcifications. 3-D Tomosynthesis images obtained. Findings: Scattered areas of fibroglandular density 12 mm focal asymmetry upper outer left breast anterior depth Skin lesions left breast Impression: BI-RADS Category 0: Incomplete: Need additional imaging evaluation Recommend follow-up spot tomographic views of 12 mm focal asymmetry upper outer left breast as well as left breast sonography to complete the workup
--- NOTE | 2025-05-05 13:15 | XR_ITS ---
Examination: Bone densitometry Date and time of exam:May 05, 2025 1321 hours INDICATIONS: Menopause age 49, personal history osteopenia Technique: Lumbar spine and hip total bone mineralization values of an calculated. Peak reference and age match control results have been displayed. Findings: Lumbar spine total bone mineralization is0.926 gm/cm2. This is 1.1 standard deviations below peak reference. This is 1.6 standard deviations above age-matched controls. Hip total bone mineralization is 0.806 gm/cm2 This is 1.2 standard deviations below peak reference. This is 0.9 standard deviations above age-matched controls Impression: There is osteopenia based on lumbar spine measurements. There is osteoporosis based on hip measurements Lumbar mineralization is decreased 4.7% compared with October 04, 2022 Hip mineralization is decreased 9.2% compared with October 04, 2022.
== END | disposition home or self-care (01) ==
PROVIDERS: PCP Internal Medicine; Referring Provider Internal Medicine; Visit Provider Internal Medicine
DX: Z12.31 Encounter for screening mammogram for malignant neoplasm of breast (principal); R92.8 Other abnormal and inconclusive findings on diagnostic imaging of breast; N64.89 Other specified disorders of breast; M85.88 Other specified disorders of bone density and structure, other site; M81.0 Age-related osteoporosis without current pathological fracture
CPT/HCPCS: 77063; 77067; 77080

== ENCOUNTER → 2025-05-05 | Outpatient (CLI) | payer MEDICARE, MEDICAID, SELFPAY ==
[2025-05-05 10:09] LABS: Albumin, Serum 4.4 gm/dL (3.4-4.8); Anion Gap 10 (7-16); BUN/Creatinine Ratio 18 Ratio (12-20); Blood Urea Nitrogen 24 mg/dL (9-23); Calcium 9.7 mg/dL (8.3-10.6); Calcium (Corrected) 9.7 mg/dL (8.5-10.1); Carbon Dioxide 31.4 mMol/L (20.0-31.0); Chloride 104 mMol/L (98-107); Creatinine (Component) 1.3 mg/dL (0.6-1.3); Glucose 97 mg/dL (74-106); Osmolality,Calculated 292 (275-295); Phosphorous 3.3 mg/dL (2.4-5.1); Potassium 4.1 mMol/L (3.4-5.1); Sodium 145 mMol/L (136-145); eGFR 41 See Note
== END | disposition home or self-care (01) ==
LOC: COPL 09:04
PROVIDERS: PCP Internal Medicine; Referring Provider Internal Medicine; Visit Provider Internal Medicine
DX: N18.30 Chronic kidney disease, stage 3 unspecified (principal)
CPT/HCPCS: 36415; 80069

== ENCOUNTER → 2025-05-10 | Outpatient (CLI) | payer MEDICARE, MEDICAID, SELFPAY ==
[2025-05-10 09:52] LABS: Basophils # (Auto) 0.0 Thou/mm3 (0.0-0.2); Basophils % (Auto) 1 % (0-2.5); Eosinophils # (Auto) 0.1 Thou/mm3 (0.0-0.5); Eosinophils % (Auto) 2 % (0-10); Hematocrit 40.8 % (36.0-46.0); Hemoglobin 13.0 g/dL (12.0-16.0); Immature Granulocytes Auto 0.01 Thou/mm3 (0.00-0.00); Lymphocytes # (Auto) 1.9 Thou/mm3 (1.0-4.8); Lymphocytes % (Auto) 35 % (10-50); Mean Corpuscular HGB Conc 31.9 g/dl (31.0-37.0); Mean Corpuscular Hemoglobin 28.8 pg (25.0-35.0); Mean Corpuscular Volume 91 fL (80-100); Monocytes # (Auto) 0.5 Thou/mm3 (0.0-0.8); Monocytes % (Auto) 9 % (0-12); Neutrophils # (Auto) 2.7 Thou/mm3 (1.8-7.7); Neutrophils % (Auto) 52 % (37-80); Nucleated Red Blood Cell # 0.00 Thou/mm3 (0.00-0.00); Nucleated Red Blood Cell % 0 /100 WBC (0); Platelet Count 219 Thou/mm3 (140-440); RDW Standard Deviation 50.7 fL (36.4-46.3); Red Blood Count 4.51 Miln/mm3 (4.00-5.20); White Blood Count 5.3 Thou/mm3 (3.6-11.0)
[2025-05-10 10:01] LABS: Glucose Estimated Average 171 mg/dL (80-131); Hemoglobin A1C 7.6 % Hgb (4.8-6.0)
[2025-05-10 10:30] LABS: Alanine Aminotransferase 10 U/L (10-49); Albumin, Serum 4.3 gm/dL (3.4-4.8); Albumin/Globulin Ratio 1.8 (1.2-2.2); Alkaline Phosphatase 93 U/L (46-116); Anion Gap 11 (7-16); Aspartate Amino Transferase 14 U/L (0-34); BUN/Creatinine Ratio 16 Ratio (12-20); Bilirubin,Total 1.2 mg/dL (0.3-1.2); Blood Urea Nitrogen 21 mg/dL (9-23); Calcium 9.4 mg/dL (8.3-10.6); Calcium (Corrected) 9.4 mg/dL (8.5-10.1); Carbon Dioxide 29.4 mMol/L (20.0-31.0); Cardiac Risk Estimate 2.9 RATIO (3.7-5.6); Chloride 106 mMol/L (98-107); Cholesterol 137 mg/dL (132-200); Creatinine (Component) 1.3 mg/dL (0.6-1.3); Globulin 2.4 gm/dL (2.3-3.5); Glucose 93 mg/dL (74-106); HDL Cholesterol 47 mg/dL (40-60); LDL Cholesterol,Calculated 62 mg/dL (0-130); Osmolality,Calculated 293 (275-295); Potassium 3.9 mMol/L (3.4-5.1); Sodium 146 mMol/L (136-145); Total Protein 6.7 gm/dL (5.7-8.2); Triglycerides 138 mg/dL (30-150); eGFR 41 See Note
== END | disposition home or self-care (01) ==
LOC: COPL 08:52
PROVIDERS: PCP Internal Medicine; Referring Provider Nurse Practitioner Family; Visit Provider Nurse Practitioner Family
DX: E11.65 Type 2 diabetes mellitus with hyperglycemia (principal)
CPT/HCPCS: 36415; 80053; 80061; 83036; 85025

== ENCOUNTER → 2025-05-16 | Outpatient (CLI) | payer MEDICARE, MEDICAID, SELFPAY ==
[2025-05-16 15:55] LABS: OBS Card Expiration Date 2028/02/28; OBS Performed By LAB; OBS QC OK? Yes
[2025-05-16 16:53] LABS: Occult Blood, Stool Negative (Negative); Occult Blood, Stool #2 Negative (Negative); Occult Blood, Stool #3 Negative (Negative)
[2025-05-16 16:54] LABS: OBS Developer Lot # 4-24-551749
== END | disposition home or self-care (01) ==
LOC: SLDO 15:42
PROVIDERS: PCP Internal Medicine; Referring Provider Internal Medicine; Visit Provider Internal Medicine
DX: Z12.11 Encounter for screening for malignant neoplasm of colon (principal)
CPT/HCPCS: 82270

== ENCOUNTER → 2025-08-02 | Outpatient (CLI) | payer MEDICARE, MEDICAID, SELFPAY ==
[2025-08-02 09:44] LABS: Basophils # (Auto) 0.0 Thou/mm3 (0.0-0.2); Basophils % (Auto) 1 % (0-2.5); Eosinophils # (Auto) 0.1 Thou/mm3 (0.0-0.5); Eosinophils % (Auto) 2 % (0-10); Hematocrit 33.9 % (36.0-46.0); Hemoglobin 10.6 g/dL (12.0-16.0); Immature Granulocytes Auto 0.01 Thou/mm3 (0.00-0.00); Lymphocytes # (Auto) 1.2 Thou/mm3 (1.0-4.8); Lymphocytes % (Auto) 21 % (10-50); Mean Corpuscular HGB Conc 31.3 g/dl (31.0-37.0); Mean Corpuscular Hemoglobin 29.4 pg (25.0-35.0); Mean Corpuscular Volume 94 fL (80-100); Monocytes # (Auto) 0.3 Thou/mm3 (0.0-0.8); Monocytes % (Auto) 6 % (0-12); Neutrophils # (Auto) 4.2 Thou/mm3 (1.8-7.7); Neutrophils % (Auto) 70 % (37-80); Nucleated Red Blood Cell # 0.00 Thou/mm3 (0.00-0.00); Nucleated Red Blood Cell % 0 /100 WBC (0); Platelet Count 238 Thou/mm3 (140-440); RDW Standard Deviation 50.5 fL (36.4-46.3); Red Blood Count 3.61 Miln/mm3 (4.00-5.20); White Blood Count 5.9 Thou/mm3 (3.6-11.0)
[2025-08-02 10:01] LABS: Alanine Aminotransferase 66 U/L (10-49); Albumin, Serum 4.1 gm/dL (3.4-4.8); Alkaline Phosphatase 186 U/L (46-116); Anion Gap 9 (7-16); Aspartate Amino Transferase 59 U/L (0-34); BUN/Creatinine Ratio 26 Ratio (12-20); Bilirubin,Direct 0.3 mg/dL (0.0-0.3); Bilirubin,Total 0.8 mg/dL (0.3-1.2); Blood Urea Nitrogen 37 mg/dL (9-23); Calcium 8.7 mg/dL (8.3-10.6); Carbon Dioxide 29.9 mMol/L (20.0-31.0); Cardiac Risk Estimate 2.3 RATIO (3.7-5.6); Chloride 106 mMol/L (98-107); Cholesterol 106 mg/dL (132-200); Creatinine (Component) 1.4 mg/dL (0.6-1.3); Glucose 86 mg/dL (74-106); HDL Cholesterol 47 mg/dL (40-60); LDL Cholesterol,Calculated 40 mg/dL (0-130); Osmolality,Calculated 296 (275-295); Phosphorous 4.4 mg/dL (2.4-5.1); Potassium 4.6 mMol/L (3.4-5.1); Sodium 145 mMol/L (136-145); Thyroid Stimulating Hormone 2.89 uIU/mL (0.55-4.78); Total Protein 6.5 gm/dL (5.7-8.2); Triglycerides 93 mg/dL (30-150); eGFR 38 See Note
[2025-08-02 10:08] LABS: Glucose Estimated Average 160 mg/dL (80-131); Hemoglobin A1C 7.2 % Hgb (4.8-6.0)
[2025-08-02 11:11] LABS: Collection Type, Urine Clean Catch
[2025-08-02 11:57] LABS: Bilirubin,Urine Negative (Negative); Blood,Urine Negative (Negative); Clarity,Urine Clear (Clear/Hazy); Color,Urine Lt-Yellow (Lt Yel-Yel); Glucose, Urine 4+ (Negative); Ketones,Urine Negative (Negative); Leukocyte Esterase,Urine Negative (Negative); Nitrite,Urine Negative (Negative); PH,Urine 6.0 (5.0-7.0); Protein,Urine Trace (Neg - Trace); RBC,Urine 1 /hpf (0-3); Specific Gravity,Urine 1.011 (1.001-1.035); Squamous Epithelial Cell,Urine 1 /hpf (0-5); Urobilinogen,Urine Negative mg/dL (0.0-1.0); WBC,Urine 1 /hpf (0-5)
[2025-08-02 12:01] LABS: Creatinine MALB Rnd Ur 51 mg/dL (30-125); Microalbumin Creat Ratio 261 mg/gCrea (<30); Microalbumin, Random Urine 133 mg/L (0-300)
== END | disposition home or self-care (01) ==
PROVIDERS: PCP Internal Medicine; Referring Provider Internal Medicine; Visit Provider Internal Medicine
DX: I12.9 Hypertensive chronic kidney disease with stage 1 through stage 4 chronic kidney disease, or unspecified chronic kidney disease (principal); E11.9 Type 2 diabetes mellitus without complications; N18.30 Chronic kidney disease, stage 3 unspecified; E78.5 Hyperlipidemia, unspecified
CPT/HCPCS: 36415; 80048; 80061; 80069; 80076; 81001; 82043; 82570; 83036; 84100; 84443; 85025

== ENCOUNTER → 2025-08-17 | Outpatient (CLI) | payer MEDICARE, MEDICAID, SELFPAY ==
--- NOTE | 2025-08-17 09:30 | XR_ITS ---
Examination: Breast ultrasound, unilateral, left Date and time of exam: August 17, 2025, 10:12 a.m. INDICATIONS: Mammogram May 05, 2025 12 mm focal asymmetry upper outer left breast anterior depth Technique: Real-time guzman scale ultrasonographic imaging performed left breast including all 4 quadrants as well as nipple retroareolar and axillary region. Findings: 8:00 nodule superficial in the breast with circumscribed margins, 11 x 9 x 15 mm IMPRESSION: BI-RADS Category 3: Probably benign findings Recommend 1 additional 6-month left breast mammogram follow-up to document stability very large nodule described above
--- NOTE | 2025-08-17 10:15 | XR_ITS ---
Examination: Diagnostic digital mammography, unilateral, left Computer aided detection 3-D breast Tomosynthesis, unilateral Date and time of exam: August 17, 2025, 1008 hours INDICATIONS: Mammogram 05/05/2000 2512 mm focal asymmetry upper outer left breast Technique: Nonmagnified MLO, CC views of the left breast have been obtained, reconstructed from 3-D Tomosynthesis images. R2 computer aided detection program utilized for evaluation of suspicious masses and/or abnormal calcifications. 3-D Tomosynthesis images obtained. Findings: Scattered areas of fibroglandular density Stable focal asymmetry outer left breast on the CC view Impression: BI-RADS category 3: Probably benign findings 1 additional 6-month left mammogram follow-up is needed to document stability of asymmetry described above
== END | disposition home or self-care (01) ==
LOC: CDIM 09:54
PROVIDERS: Referring Provider Internal Medicine; Visit Provider Internal Medicine
DX: R92.332 Mammographic heterogeneous density, left breast (principal); N64.89 Other specified disorders of breast; N63.24 Unspecified lump in the left breast, lower inner quadrant
CPT/HCPCS: 76641; 77061; 77065; G0279